=== PATIENT | male | born 1960 | race Caucasian/White ===

== ENCOUNTER → 2017-02-21 | Outpatient (CLI) | payer BC ==
--- NOTE | 2017-02-22 15:31 | CR ---
EXAM DATE: 02/21/17 PATIENT'S AGE: 56 Patient: JOSH BENEDICT Facility: [place], [place] Site . Site : 1960 Study: XRay Spine Cervical [id number]/27/2017 9:35:48 AM Ordering Physician: Carlos Harris Final Report: Indication: Pain. Technique: Three views. Impression: No fracture or malalignment. Mild degenerative disk height loss and osteophyte formation C5-6 and C6-C7. Mild facet arthrosis C6-C7. Prevertebral soft tissues are normal. Dictated by Agusto Escalona MD @ Feb 21 2017 9:37PM (Electronic Signature) Report Signed by Proxy. JESSICA
== END ==
LOC: MW.CHFP 08:50
PROVIDERS: ATTEND Emergency Medicine
DX: M54.2 Cervicalgia (principal); M50.322 Other cervical disc degeneration at C5-C6 level; M47.812 Spondylosis without myelopathy or radiculopathy, cervical region; M25.78 Osteophyte, vertebrae
CPT/HCPCS: 72040; 72040-26

== ENCOUNTER → 2017-03-04 | Outpatient (CLI) | payer BC ==
--- NOTE | 2017-03-05 08:49 | MR ---
EXAMINATION: MRI cervical spine HISTORY: Disc degeneration COMPARISON: Radiographs dated 02/21/2017 TECHNIQUE: Multiplanar and multisequence images obtained of the cervical spine without contrast. FINDINGS: There is straightening of the normal cervical lordosis. The vertebral body heights appear well maintained. There is no abnormal spinal cord signal. No suspicious bone marrow signal changes identified. The visualized intracranial compartments are normal. The prevertebral soft tissues appea r grossly unremarkable. C2-C3: Unremarkable. C3-C4: Tiny diffuse disc bulge without significant spinal canal stenosis. Trace left neural foramina l stenosis. C4-C5: Tiny diffuse disc bulge with minimal spinal canal stenosis. No significant neural foraminal s tenosis. C5-C6: Large diffuse disc bulge with moderate spinal canal stenosis. Moderate right and mild left ne ural foraminal stenosis. C6-C7: Large diffuse disc bulge asymmetric to the right resulting in moderate spinal canal stenosis. There is moderate right and mild left neural foraminal stenosis. C7-T1: Unremarkable. IMPRESSION: 1. Multilevel degenerative disc disease noted within the cervical spine with individual details leanne griffin
== END | disposition home or self-care (01) ==
LOC: MW.MRI 12:00
PROVIDERS: ATTEND Emergency Medicine
DX: M50.30 Other cervical disc degeneration, unspecified cervical region (principal); M50.31 Other cervical disc degeneration, high cervical region
CPT/HCPCS: 72141; 72141-26

== ENCOUNTER 2017-07-16 23:34 | Emergency (ER) | payer BC ==
[2017-07-16] MEDS ORDERED: Hydrocortisone 2.5% Crm 30 GM Tube TOP PRN (23:50)
--- NOTE | 2017-07-16 23:53 | EDM.PDOC ---
ED HPI GENERAL MEDICAL PROBLEM - General Chief Complaint: Skin Complaint Stated Complaint: HEMORRHOIDS Time Seen by Provider: 07/16/17 23:52 - History of Present Illness INITIAL COMMENTS - FREE TEXT/NARRATIVE: HISTORY AND PHYSICAL: History of present illness: Patient is 57-year-old male who presents with a concern of external hemorrhoid he denies other concern Review of systems: As per history of present illness and below otherwise all systems reviewed and negative. Past medical history: As per history of present illness and as reviewed below otherwise noncontributory. Surgical history: As per history of present illness and as reviewed below otherwise noncontributory. Social history: No reported history of drug or alcohol abuse. Family history: As per history of present illness and as reviewed below otherwise noncontributory. Physical exam: HEENT: Atraumatic, normocephalic, pupils reactive, negative for conjunctival pallor or scleral icterus, mucous membranes moist, throat clear, neck supple, nontender, trachea midline. Lungs: Clear to auscultation, breath sounds equal bilaterally, chest nontender. Heart: S1S2, regular, negative for clicks, rubs, or JVD. Abdomen: Soft, nondistended, nontender. Negative for masses or hepatosplenomegaly. Negative for costovertebral tenderness. Pelvis: Stable nontender. Genitourinary: Deferred. Rectal: Inflamed external hemorrhoid without bleeding noted under the palpation no thrombosis at this time Extremities: Atraumatic, negative for cords or calf pain. Neurovascular unremarkable. Neuro: Awake, alert, oriented. Cranial nerves II through XII unremarkable. Cerebellum unremarkable. Motor and sensory unremarkable throughout. Exam nonfocal. Diagnostics: None Therapeutics: Anusol HC cream Impression: #1 external hemorrhoid Definitive disposition and diagnosis as appropriate pending reevaluation and review of above. Rectal Pain Score (Numeric/FACES): 7 - Related Data Allergies Allergy/AdvReac Type Severity Reaction Status Date / Time No Known Allergies Allergy Verified 03/01/14 13:50 Home Meds: Home Meds Aspirin [[place] Aspirin] 81 mg PO DAILY 02/10/15 [History] Social & Family History - Alcohol Use Days Per Week of Alcohol Use: 1 - Recreational Drug Use Recreational Drug Use: No Drug Use in Last 12 Months: No ED ROS GENERAL - Review of Systems Review Of Systems: ROS reveals no pertinent complaints other than HPI. ED EXAM, SKIN/RASH Exam: See Below (See dictation) Course - Vital Signs Last Recorded V/S: Last Vital Signs Temp 37.1 C 07/16/17 23:46 Pulse 74 07/16/17 23:46 Resp 18 07/16/17 23:46 BP 139/81 07/16/17 23:46 Pulse Ox 97 07/16/17 23:46 Departure - Departure Time of Disposition: 23:52 Disposition: Home, Self-Care 01 Condition: Good Clinical Impression: External hemorrhoid - Discharge Information Referrals: PCP,None [Primary Care Provider] - Additional Instructions: The following information is given to patients seen in the emergency department who are being discharged to home. This information is to outline your options for follow-up care. We provide all patients seen in our emergency department with a follow-up referral. The need for follow-up, as well as the timing and circumstances, are variable depending upon the specifics of your emergency department visit. If you don't have a primary care physician on staff, we will provide you with a referral. We always advise you to contact your personal physician following an emergency department visit to inform them of the circumstance of the visit and for follow-up with them and/or the need for any referrals to a consulting specialist. The emergency department will also refer you to a specialist when appropriate. This referral assures that you have the opportunity for followup care with a specialist. All of these measure are taken in an effort to provide you with optimal care, which includes your followup. Under all circumstances we always encourage you to contact your private physician who remains a resource for coordinating your care. When calling for followup care, please make the office aware that this follow-up is from your recent emergency room visit. If for any reason you are refused follow-up, please contact the [facility] emergency department at and asked to speak to the emergency department charge nurse. [facility] Specialty Care - General Surgery Professional Building [address] [place] [address], [address] [place] [address] Anusol HC suppository and cream as directed Colace as prescribed follow-up Gen. surgery call for appointment above return as needed as discussed
[2017-07-17 00:10] VITALS: BP 127/77
[2017-07-17] MEDS ORDERED: Ondansetron 4 MG/2 ML SDV ONE (15:31)
[2017-07-17] MEDS ORDERED: Hydrocortisone 2.5% Crm 30 GM Tube ONE (23:55)
== END 2017-07-17 00:12 | disposition home or self-care (01) ==
LOC: MW.ED 23:34
DX: K64.4 Residual hemorrhoidal skin tags (principal); Z79.82 Long term (current) use of aspirin
CPT/HCPCS: 99282; A9270; J2405

== ENCOUNTER 2017-07-17 08:10 | Day surgery (SDC) | payer BC ==
[2017-07-17] MEDS ORDERED: Sodium Chloride 0.9% 2.5 ML Syringe FLUSH PRN ×2 (08:19→10:56)
[2017-07-17] MEDS ORDERED: Sodium Chloride 0.9% 10 ML Syringe FLUSH PRN ×2 (08:19→10:56)
[2017-07-17] MEDS ORDERED: Ondansetron 4 MG/2 ML SDV IVPUSH ONE (08:25)
--- NOTE | 2017-07-17 08:31 | EDM.PDOC ---
ED HPI GENERAL MEDICAL PROBLEM - General Chief Complaint: Genitourinary Problem Stated Complaint: UNABLE TO URINATE Time Seen by Provider: 07/17/17 08:13 Source of Information: Reports: Patient History Limitations: Reports: No Limitations - History of Present Illness INITIAL COMMENTS - FREE TEXT/NARRATIVE: History of present illness: []Patient states that yesterday he noted a large painful hemorrhoid with minimal bleeding. He has been unable to urinate since 2 this morning is complaining of severe pain. Review of systems: As per history of present illness and below otherwise all systems reviewed and negative. Past medical history: As per history of present illness and as reviewed below otherwise noncontributory. Surgical history: As per history of present illness and as reviewed below otherwise noncontributory. Social history: No reported history of drug or alcohol abuse. Family history: As per history of present illness and as reviewed below otherwise noncontributory. Physical exam: General: Well developed, well nourished in NAD HEENT: Atraumatic, normocephalic, pupils reactive, negative for conjunctival pallor or scleral icterus, mucous membranes moist, throat clear, neck supple, nontender, trachea midline. Lungs: Clear to auscultation, breath sounds equal bilaterally, chest nontender. Heart: S1S2, regular, negative for clicks, rubs, or JVD. Abdomen: Soft, nondistended, nontender. Negative for masses or hepatosplenomegaly. Negative for costovertebral tenderness. Pelvis: Stable nontender. Genitourinary: Deferred. Rectal: There is a 3 cm x 2 cm external hemorrhoid protruding that is mildly erythematous, tender and not thrombosed. There is no active bleeding. Extremities: Atraumatic, negative for cords or calf pain. Neurovascular unremarkable. Neuro: Awake, alert, oriented. Cranial nerves II through XII unremarkable. Cerebellum unremarkable. Motor and sensory unremarkable throughout. Exam nonfocal. Diagnostics: []Labs and UA negative Therapeutics: []Lopez catheter placed with relief of lower abdominal distention and discomfort immediately Impression: []Acute External hemorrhoid, Plan: [] general surgery consulted and will be admitting for removal in the OR today Definitive disposition and diagnosis as appropriate pending reevaluation and review of above. rectum Pain Score (Numeric/FACES): 10 - Related Data Allergies Allergy/AdvReac Type Severity Reaction Status Date / Time No Known Allergies Allergy Verified 07/17/17 08:15 Home Meds: Home Meds Aspirin [[place] Aspirin] 81 mg PO DAILY 02/10/15 [History] Past Medical History - Past Health History Medical/Surgical History: Denies Medical/Surgical History HEENT History: Reports: Impaired Vision Other HEENT History: wears glasses Gastrointestinal History: Reports: Hemorrhoids Dermatologic History: Reports: Other (See Below) Other Dermatologic History: hemorrhoids- surgery in past. - Infectious Disease History Infectious Disease History: Reports: Chicken Pox, Measles - Past Surgical History Musculoskeletal Surgical History: Reports: Other (See Below) Other Musculoskeletal Surgeries/Procedures:: bunion removed from foot Social & Family History - Family History Family Medical History: Noncontributory Cardiac: Reports: Other (See Below) Other Cardiac Family History: heart disease Endocrine/Metabolic: Reports: Diabetes, Type I - Tobacco Use Smoking Status *Q: Never Smoker Second Hand Smoke Exposure: No - Caffeine Use Caffeine Use: Reports: Coffee - Alcohol Use Days Per Week of Alcohol Use: 1 - Recreational Drug Use Recreational Drug Use: No Drug Use in Last 12 Months: No ED ROS GENERAL - Review of Systems Review Of Systems: See Below (See history of present illness) ED EXAM, RENAL/ - Physical Exam Exam: See Below (See history of present illness) Course - Vital Signs Last Recorded V/S: Last Vital Signs Temp 36.1 C 07/17/17 08:10 Pulse 70 07/17/17 08:10 Resp 20 07/17/17 08:10 BP 115/74 07/17/17 08:10 Pulse Ox 94 L 07/17/17 08:10 - Orders/Labs/Meds Orders: Active Orders 24 hr Category Date Time Status Insert Lopez Catheter [Insert Urinary Catheter] [OM.PC] Care 07/17/17 08:30 Ordered Q24H Urinary Catheter Assessment [RC] ASDIRECTED Care 07/17/17 08:19 Active HYDROmorphone [Dilaudid] Med 07/17/17 08:25 Active 0.5 mg IVPUSH Q1H PRN Sodium Chloride 0.9% [Saline Flush] Med 07/17/17 08:19 Active 10 ml FLUSH ASDIRECTED PRN Sodium Chloride 0.9% [Saline Flush] Med 07/17/17 08:19 Active 2.5 ml FLUSH ASDIRECTED PRN Saline Lock Insert [OM.PC] Stat Oth 07/17/17 08:20 Ordered Medication Orders Hydromorphone HCl (Dilaudid) 0.5 mg IVPUSH Q1H PRN PRN Reason: Pain Last Admin: 07/17/17 08:43 Dose: 0.5 mg Sodium Chloride (Saline Flush) 10 ml FLUSH ASDIRECTED PRN PRN Reason: Keep Vein Open Sodium Chloride (Saline Flush) 2.5 ml FLUSH ASDIRECTED PRN PRN Reason: Keep Vein Open Labs: Laboratory Tests 07/17/17 07/17/17 07/17/17 Range/Units 08:43 08:43 08:52 WBC 6.78 (4.0-11.0) K/uL RBC 5.00 (4.50-5.90) M/uL Hgb 15.8 (13.0-17.0) g/dL Hct 43.6 (38.0-50.0) % MCV 87.2 (80.0-98.0) fL MCH 31.6 (27.0-32.0) pg MCHC 36.2 (31.0-37.0) g/dL RDW Std Deviation 41.8 (28.0-62.0) fl RDW Coeff of Shruthi 13 (11.0-15.0) % Plt Count 179 (150-400) K/uL MPV 10.60 (7.40-12.00) fL Neut % (Auto) 44.8 L (48.0-80.0) % Lymph % (Auto) 42.3 H (16.0-40.0) % [place] % (Auto) 11.2 (0.0-15.0) % Eos % (Auto) 1.6 (0.0-7.0) % Baso % (Auto) 0.1 (0.0-1.5) % Neut # (Auto) 3.0 (1.4-5.7) K/uL Lymph # (Auto) 2.9 H (0.6-2.4) K/uL [place] # (Auto) 0.8 (0.0-0.8) K/uL Eos # (Auto) 0.1 (0.0-0.7) K/uL Baso # (Auto) 0.0 (0.0-0.1) K/uL Nucleated RBC % 0.0 /100WBC Nucleated RBCs # 0 K/uL Sodium 137 (136-146) mmol/L Potassium 3.9 (3.5-5.1) mmol/L Chloride 105 (98-110) mmol/L Carbon Dioxide 21 (21-31) mmol/L BUN 17 (6.0-23.0) mg/dL Creatinine 1.3 (0.6-1.5) mg/dL Est Cr Clr Drug Dosing 65.67 mL/min Estimated GFR (MDRD) 57.1 ml/min Glucose 112 H (60-110) mg/dL Calcium 9.4 (8.8-10.8) mg/dL Total Bilirubin 0.6 (0.1-1.5) mg/dL AST 22 (5-40) IU/L ALT 28 (8-54) IU/L Alkaline Phosphatase 60 (40-150) Total Protein 7.5 (6.0-8.0) g/dL Albumin 4.1 (3.5-5.0) g/dL Globulin 3.4 (2.0-3.5) g/dL Albumin/Globulin Ratio 1.2 L (1.3-2.8) Urine Color YELLOW Urine Appearance CLEAR Urine pH 8.0 (5.0-8.0) Ur Specific [place] 1.015 (1.001-1.035) Urine Protein NEGATIVE (NEGATIVE) mg/dL Urine Glucose (UA) NEGATIVE (NEGATIVE) mg/dL Urine Ketones NEGATIVE (NEGATIVE) mg/dL Urine Occult Blood NEGATIVE (NEGATIVE) Urine Nitrite NEGATIVE (NEGATIVE) Urine Bilirubin NEGATIVE (NEGATIVE) Urine Urobilinogen 0.2 (<2.0) EU/dL Ur Leukocyte Esterase NEGATIVE (NEGATIVE) Urine RBC 0-1 (0-2/HPF) Urine WBC 2-3 (0-5/HPF) Ur Epithelial Cells RARE (NONE-FEW) Urine Bacteria FEW (NEGATIVE) Urine Mucus MODERATE (NONE-MOD) Meds: Medications Generic Name Dose Route Start Last Admin Trade Name Freq PRN Reason Stop Dose Admin Hydromorphone HCl 0.5 mg 07/17/17 08:25 07/17/17 08:43 Dilaudid IVPUSH 0.5 mg Q1H PRN Administration Pain Sodium Chloride 10 ml 07/17/17 08:19 Saline Flush FLUSH ASDIRECTED PRN Keep Vein Open Sodium Chloride 2.5 ml 07/17/17 08:19 Saline Flush FLUSH ASDIRECTED PRN Keep Vein Open Discontinued Medications Generic Name Dose Route Start Last Admin Trade Name Camilla PRN Reason Stop Dose Admin Ondansetron HCl 4 mg 07/17/17 08:25 07/17/17 08:43 Zofran IVPUSH 07/17/17 08:26 4 mg ONETIME ONE Administration Departure - Departure Time of Disposition: 09:53 Disposition: Refer to Observation Condition: Good Clinical Impression: External hemorrhoids - Discharge Information Forms: ED Department Discharge - My Orders Last 24 Hours: My Active Orders 07/17/17 08:19 Urinary Catheter Assessment [RC] ASDIRECTED Sodium Chloride 0.9% [Saline Flush] 10 ml FLUSH ASDIRECTED PRN Sodium Chloride 0.9% [Saline Flush] 2.5 ml FLUSH ASDIRECTED PRN 07/17/17 08:20 Saline Lock Insert [OM.PC] Stat 07/17/17 08:25 HYDROmorphone [Dilaudid] 0.5 mg IVPUSH Q1H PRN 07/17/17 08:30 Insert Lopez Catheter [Insert Urinary Catheter] [OM.PC] Q24H - Assessment/Plan Last 24 Hours: My Active Orders 07/17/17 08:19 Urinary Catheter Assessment [RC] ASDIRECTED Sodium Chloride 0.9% [Saline Flush] 10 ml FLUSH ASDIRECTED PRN Sodium Chloride 0.9% [Saline Flush] 2.5 ml FLUSH ASDIRECTED PRN 07/17/17 08:20 Saline Lock Insert [OM.PC] Stat 07/17/17 08:25 HYDROmorphone [Dilaudid] 0.5 mg IVPUSH Q1H PRN 07/17/17 08:30 Insert Lopez Catheter [Insert Urinary Catheter] [OM.PC] Q24H
[2017-07-17] MEDS: HYDROmorphone 1 MG/ML Syringe IVPUSH PRN ×2 (08:43→13:15)
--- NOTE | 2017-07-17 10:11 | PCM.HP ---
H&P History of Present Illness - General Date of Service: 07/17/17 Admit Problem/Dx: Admission Diagnosis/Problem Admission Diagnosis/Problem Hemorrhoidectomy Source of Information: Patient History Limitations: Reports: No Limitations - History of Present Illness Initial Comments - Free Text/Narative: Patient is 57 year old male who presents with a 24 hour history of an externally thrombosed hemorrhoid. He presented to the ED last evening and was given proctofoam and pain medications. He developed urinary retention overnight and presented to the ED this morning. He had a thrombosed hemorrhoid many years back but never had surgery for this. This feels very similar to his previous episode, but he did not have urinary retention with this. He denies fevers, chills, nausea, vomiting, abdominal bloating, and is still passing gas. He had a BM this morning. He had a colonoscopy a couple years ago which he states was normal. He denies any BRBPR before this. rectum Pain Score (Numeric/FACES): 5 - Related Data Allergies/Adverse Reactions: Allergies Allergy/AdvReac Type Severity Reaction Status Date / Time No Known Allergies Allergy Verified 07/17/17 08:15 Home Medications: Home Meds Aspirin [[place] Aspirin] 81 mg PO DAILY 02/10/15 [History] Past Medical History - Past Health History Medical/Surgical History: Denies Medical/Surgical History HEENT History: Reports: Impaired Vision Other HEENT History: wears glasses Gastrointestinal History: Reports: Hemorrhoids Dermatologic History: Reports: Other (See Below) Other Dermatologic History: hemorrhoids- surgery in past. - Infectious Disease History Infectious Disease History: Reports: Chicken Pox, Measles - Past Surgical History Musculoskeletal Surgical History: Reports: Other (See Below) Other Musculoskeletal Surgeries/Procedures:: bunion removed from foot Social & Family History - Family History Family Medical History: Noncontributory Cardiac: Reports: Other (See Below) Other Cardiac Family History: heart disease Endocrine/Metabolic: Reports: Diabetes, Type I - Tobacco Use Smoking Status *Q: Never Smoker Second Hand Smoke Exposure: No - Caffeine Use Caffeine Use: Reports: Coffee - Alcohol Use Days Per Week of Alcohol Use: 1 - Recreational Drug Use Recreational Drug Use: No Drug Use in Last 12 Months: No H&P Review of Systems - Review of Systems: Review Of Systems: ROS reveals no pertinent complaints other than HPI. Exam - Exam Exam: See Below - Vital Signs Vital Signs: Last Vital Signs Temp 36.1 C 07/17/17 08:10 Pulse 59 L 07/17/17 09:54 Resp 16 07/17/17 09:54 BP 135/79 07/17/17 09:54 Pulse Ox 95 07/17/17 09:54 Weight: 94 kg - Exam General: Alert, Oriented, Cooperative HEENT: Conjunctiva Clear, EACs Clear, Hearing Intact, Mucosa Moist & Daniels, Nares Patent, Posterior Pharynx Clear, Pupils Equal, Pupils Reactive Neck: Supple Lungs: Clear to Auscultation, Normal Respiratory Effort Cardiovascular: Regular Rate, Regular Rhythm GI/Abdominal Exam: Normal Bowel Sounds, Soft, Non-Tender, No Organomegaly, No Distention Rectal (Males) Exam: Normal Rectal Tone, Hemorrhoids (externally thrombosed hemorrhoid on the right lateral side), Tenderness - Patient Data Lab Results Last 24 hrs: Laboratory Results - last 24 hr 07/17/17 07/17/17 07/17/17 Range/Units 08:43 08:43 08:52 WBC 6.78 (4.0-11.0) K/uL RBC 5.00 (4.50-5.90) M/uL Hgb 15.8 (13.0-17.0) g/dL Hct 43.6 (38.0-50.0) % MCV 87.2 (80.0-98.0) fL MCH 31.6 (27.0-32.0) pg MCHC 36.2 (31.0-37.0) g/dL RDW Std Deviation 41.8 (28.0-62.0) fl RDW Coeff of Shruthi 13 (11.0-15.0) % Plt Count 179 (150-400) K/uL MPV 10.60 (7.40-12.00) fL Neut % (Auto) 44.8 L (48.0-80.0) % Lymph % (Auto) 42.3 H (16.0-40.0) % [place] % (Auto) 11.2 (0.0-15.0) % Eos % (Auto) 1.6 (0.0-7.0) % Baso % (Auto) 0.1 (0.0-1.5) % Neut # (Auto) 3.0 (1.4-5.7) K/uL Lymph # (Auto) 2.9 H (0.6-2.4) K/uL [place] # (Auto) 0.8 (0.0-0.8) K/uL Eos # (Auto) 0.1 (0.0-0.7) K/uL Baso # (Auto) 0.0 (0.0-0.1) K/uL Nucleated RBC % 0.0 /100WBC Nucleated RBCs # 0 K/uL Sodium 137 (136-146) mmol/L Potassium 3.9 (3.5-5.1) mmol/L Chloride 105 (98-110) mmol/L Carbon Dioxide 21 (21-31) mmol/L BUN 17 (6.0-23.0) mg/dL Creatinine 1.3 (0.6-1.5) mg/dL Est Cr Clr Drug Dosing 65.67 mL/min Estimated GFR (MDRD) 57.1 ml/min Glucose 112 H (60-110) mg/dL Calcium 9.4 (8.8-10.8) mg/dL Total Bilirubin 0.6 (0.1-1.5) mg/dL AST 22 (5-40) IU/L ALT 28 (8-54) IU/L Alkaline Phosphatase 60 (40-150) Total Protein 7.5 (6.0-8.0) g/dL Albumin 4.1 (3.5-5.0) g/dL Globulin 3.4 (2.0-3.5) g/dL Albumin/Globulin Ratio 1.2 L (1.3-2.8) Urine Color YELLOW Urine Appearance CLEAR Urine pH 8.0 (5.0-8.0) Ur Specific [place] 1.015 (1.001-1.035) Urine Protein NEGATIVE (NEGATIVE) mg/dL Urine Glucose (UA) NEGATIVE (NEGATIVE) mg/dL Urine Ketones NEGATIVE (NEGATIVE) mg/dL Urine Occult Blood NEGATIVE (NEGATIVE) Urine Nitrite NEGATIVE (NEGATIVE) Urine Bilirubin NEGATIVE (NEGATIVE) Urine Urobilinogen 0.2 (<2.0) EU/dL Ur Leukocyte Esterase NEGATIVE (NEGATIVE) Urine RBC 0-1 (0-2/HPF) Urine WBC 2-3 (0-5/HPF) Ur Epithelial Cells RARE (NONE-FEW) Urine Bacteria FEW (NEGATIVE) Urine Mucus MODERATE (NONE-MOD) Result Diagrams: 07/17/17 08:43 07/17/17 08:43 *Q Meaningful Use (ADM) - VTE *Q VTE Criteria *Q: - Stroke *Q Stroke Criteria *Q: - AMI *Q AMI Criteria *Q: - Problem List (1) External hemorrhoid SNOMED Code(s): 08438954 ICD Code: K64.4 - RESIDUAL HEMORRHOIDAL SKIN TAGS Status: Acute Current Visit: Yes (2) Acute urinary retention SNOMED Code(s): 691233150 ICD Code: R33.8 - OTHER RETENTION OF URINE Status: Acute Current Visit: Yes Problem List Initiated/Reviewed/Updated: Yes Orders Last 24hrs: Active Orders 24 hr Category Date Time Status Admission Status [Patient Status] [ADT] Stat ADT 07/17/17 09:53 Active Insert Marie Catheter [Insert Urinary Catheter] [OM.PC] Care 07/17/17 08:30 Ordered Q24H Urinary Catheter Assessment [RC] ASDIRECTED Care 07/17/17 08:19 Active HYDROmorphone [Dilaudid] Med 07/17/17 08:25 Active 0.5 mg IVPUSH Q1H PRN Sodium Chloride 0.9% [Saline Flush] Med 07/17/17 08:19 Active 10 ml FLUSH ASDIRECTED PRN Sodium Chloride 0.9% [Saline Flush] Med 07/17/17 08:19 Active 2.5 ml FLUSH ASDIRECTED PRN Saline Lock Insert [OM.PC] Stat Oth 07/17/17 08:20 Ordered Medication Orders Hydromorphone HCl (Dilaudid) 0.5 mg IVPUSH Q1H PRN PRN Reason: Pain Last Admin: 07/17/17 08:43 Dose: 0.5 mg Sodium Chloride (Saline Flush) 10 ml FLUSH ASDIRECTED PRN PRN Reason: Keep Vein Open Sodium Chloride (Saline Flush) 2.5 ml FLUSH ASDIRECTED PRN PRN Reason: Keep Vein Open Assessment/Plan Comment:: Patient has an acutely thrombosed external hemorrhoid. Given his presentation is <72 hours, he would benefit from a surgical excision of the hemorrhoid. The patient and I discussed the hemorrhoidectomy procedure and expected post- operative course. We talked about the need to take pain medication, local analgesics, fiber and lidocaine creams afterwards. We discussed the risks including bleeding, infection, damage to surrounding structures including the anal sphincter resulting in loss of continence and anal stricturing. The patient verbalized understanding and wishes to proceed. Will admit to the floor , keep NPO, start IV fluids and write for IV pain meds. Will keep the marie for now and start flomax postoperatively. We will decide whether to keep the marie or attempt a trial void in the morning.
[2017-07-17] MEDS ORDERED: cefOXitin 2 GM in Premix Bag 1 BAG IV ONE (10:56)
[2017-07-17] MEDS ORDERED: Lactated Ringers 1,000 ML IV SCH (11:00)
--- NOTE | 2017-07-17 14:45 | PCM.PREANE ---
Preanesthetic Assessment - Anesthesia/Transfusion/Family Hx Anesthesia History: Prior Anesthesia Without Reaction Family History of Anesthesia Reaction: No - Review of Systems General: No Symptoms Pulmonary: No Symptoms Cardiovascular: No Symptoms Neurological: No Symptoms Other: Reports: None - Physical Assessment NPO Status Date: 07/16/17 O2 Sat by Pulse Oximetry: 95 Respiratory Rate: 18 Vital Signs: Last Vital Signs Temp 36.4 C 07/17/17 12:00 Pulse 54 L 07/17/17 12:00 Resp 18 07/17/17 12:00 BP 100/54 L 07/17/17 12:00 Pulse Ox 95 07/17/17 12:00 Height: 1.78 m Weight: 94 kg ASA Class: 2 Mental Status: Alert & Oriented x3 Dentition: Reports: [place](s) (maxillary incisors) ROM/Head Extension: Full Lungs: Clear to Auscultation, Normal Respiratory Effort Cardiovascular: Regular Rate, Regular Rhythm - Lab Values: Laboratory Last Values WBC 6.78 K/uL (4.0-11.0) 07/17/17 08:43 RBC 5.00 M/uL (4.50-5.90) 07/17/17 08:43 Hgb 15.8 g/dL (13.0-17.0) 07/17/17 08:43 Hct 43.6 % (38.0-50.0) 07/17/17 08:43 MCV 87.2 fL (80.0-98.0) 07/17/17 08:43 MCH 31.6 pg (27.0-32.0) 07/17/17 08:43 MCHC 36.2 g/dL (31.0-37.0) 07/17/17 08:43 RDW Std Deviation 41.8 fl (28.0-62.0) 07/17/17 08:43 RDW Coeff of Shruthi 13 % (11.0-15.0) 07/17/17 08:43 Plt Count 179 K/uL (150-400) 07/17/17 08:43 MPV 10.60 fL (7.40-12.00) 07/17/17 08:43 Neut % (Auto) 44.8 % (48.0-80.0) L 07/17/17 08:43 Lymph % (Auto) 42.3 % (16.0-40.0) H 07/17/17 08:43 [place] % (Auto) 11.2 % (0.0-15.0) 07/17/17 08:43 Eos % (Auto) 1.6 % (0.0-7.0) 07/17/17 08:43 Baso % (Auto) 0.1 % (0.0-1.5) 07/17/17 08:43 Neut # (Auto) 3.0 K/uL (1.4-5.7) 07/17/17 08:43 Lymph # (Auto) 2.9 K/uL (0.6-2.4) H 07/17/17 08:43 [place] # (Auto) 0.8 K/uL (0.0-0.8) 07/17/17 08:43 Eos # (Auto) 0.1 K/uL (0.0-0.7) 07/17/17 08:43 Baso # (Auto) 0.0 K/uL (0.0-0.1) 07/17/17 08:43 Nucleated RBC % 0.0 /100WBC 07/17/17 08:43 Nucleated RBCs # 0 K/uL 07/17/17 08:43 Sodium 137 mmol/L (136-146) 07/17/17 08:43 Potassium 3.9 mmol/L (3.5-5.1) 07/17/17 08:43 Chloride 105 mmol/L (98-110) 07/17/17 08:43 Carbon Dioxide 21 mmol/L (21-31) 07/17/17 08:43 BUN 17 mg/dL (6.0-23.0) 07/17/17 08:43 Creatinine 1.3 mg/dL (0.6-1.5) 07/17/17 08:43 Est Cr Clr Drug Dosing 65.67 mL/min 07/17/17 08:43 Estimated GFR (MDRD) 57.1 ml/min 07/17/17 08:43 Glucose 112 mg/dL (60-110) H 07/17/17 08:43 Calcium 9.4 mg/dL (8.8-10.8) 07/17/17 08:43 Total Bilirubin 0.6 mg/dL (0.1-1.5) 07/17/17 08:43 AST 22 IU/L (5-40) 07/17/17 08:43 ALT 28 IU/L (8-54) 07/17/17 08:43 Alkaline Phosphatase 60 (40-150) 07/17/17 08:43 Total Protein 7.5 g/dL (6.0-8.0) 07/17/17 08:43 Albumin 4.1 g/dL (3.5-5.0) 07/17/17 08:43 Globulin 3.4 g/dL (2.0-3.5) 07/17/17 08:43 Albumin/Globulin Ratio 1.2 (1.3-2.8) L 07/17/17 08:43 Urine Color YELLOW 07/17/17 08:52 Urine Appearance CLEAR 07/17/17 08:52 Urine pH 8.0 (5.0-8.0) 07/17/17 08:52 Ur Specific [place] 1.015 (1.001-1.035) 07/17/17 08:52 Urine Protein NEGATIVE mg/dL (NEGATIVE) 07/17/17 08:52 Urine Glucose (UA) NEGATIVE mg/dL (NEGATIVE) 07/17/17 08:52 Urine Ketones NEGATIVE mg/dL (NEGATIVE) 07/17/17 08:52 Urine Occult Blood NEGATIVE (NEGATIVE) 07/17/17 08:52 Urine Nitrite NEGATIVE (NEGATIVE) 07/17/17 08:52 Urine Bilirubin NEGATIVE (NEGATIVE) 07/17/17 08:52 Urine Urobilinogen 0.2 EU/dL (<2.0) 07/17/17 08:52 Ur Leukocyte Esterase NEGATIVE (NEGATIVE) 07/17/17 08:52 Urine RBC 0-1 (0-2/HPF) 07/17/17 08:52 Urine WBC 2-3 (0-5/HPF) 07/17/17 08:52 Ur Epithelial Cells RARE (NONE-FEW) 07/17/17 08:52 Urine Bacteria FEW (NEGATIVE) 07/17/17 08:52 Urine Mucus MODERATE (NONE-MOD) 07/17/17 08:52 - Allergies Allergies/Adverse Reactions: Allergies Allergy/AdvReac Type Severity Reaction Status Date / Time No Known Allergies Allergy Verified 07/17/17 08:15 - Anesthesia Plan Pre-Op Medication Ordered: None - Acknowledgements Anesthesia Type Planned: General Anesthesia Pt an Appropriate Candidate for the Planned Anesthesia: Yes Alternatives and Risks of Anesthesia Discussed w Pt/Guardian: Yes Pt/Guardian Understands and Agrees with Anesthesia Plan: Yes PreAnesthesia Questionnaire - Past Health History Medical/Surgical History: Denies Medical/Surgical History HEENT History: Reports: Impaired Vision Other HEENT History: wears glasses Gastrointestinal History: Reports: Hemorrhoids Genitourinary History: Reports: Other (See Below) Other Genitourinary History: Came to ED with problem of being unable to void so catheter inserted. Musculoskeletal History: Reports: Arthritis, Neck Pain, Chronic Dermatologic History: Reports: Other (See Below) Other Dermatologic History: hemorrhoids- surgery in past. - Infectious Disease History Infectious Disease History: Reports: Chicken Pox, Measles - Past Surgical History GI Surgical History: Reports: None Male Surgical History: Reports: Circumcision Musculoskeletal Surgical History: Reports: Other (See Below) Other Musculoskeletal Surgeries/Procedures:: bunion removed from foot - SUBSTANCE USE Smoking Status *Q: Never Smoker Second Hand Smoke Exposure: No Days Per Week of Alcohol Use: 1 Recreational Drug Use History: No - HOME MEDS Home Medications: Home Meds Aspirin [[place] Aspirin] 81 mg PO DAILY 02/10/15 [History] - CURRENT (IN HOUSE) MEDS Current Meds: Current Medications Hydromorphone HCl (Dilaudid) 0.5 mg IVPUSH Q1H PRN PRN Reason: Pain Last Admin: 07/17/17 13:15 Dose: 0.5 mg Lactated Ringer's (Ringers, Lactated) 1,000 mls @ 100 mls/hr IV ASDIRECTED ASIA Last Admin: 07/17/17 11:27 Dose: 100 mls/hr Sodium Chloride (Saline Flush) 10 ml FLUSH ASDIRECTED PRN PRN Reason: Keep Vein Open Sodium Chloride (Saline Flush) 2.5 ml FLUSH ASDIRECTED PRN PRN Reason: Keep Vein Open Sodium Chloride (Saline Flush) 10 ml FLUSH ASDIRECTED PRN PRN Reason: Keep Vein Open Sodium Chloride (Saline Flush) 2.5 ml FLUSH ASDIRECTED PRN PRN Reason: Keep Vein Open Discontinued Medications Cefoxitin Sodium 2 gm/ Premix 50 mls @ 100 mls/hr IV ONETIME ONE Stop: 07/17/17 11:25 Last Admin: 07/17/17 11:29 Dose: 100 mls/hr Ondansetron HCl (Zofran) 4 mg IVPUSH ONETIME ONE Stop: 07/17/17 08:26 Last Admin: 07/17/17 08:43 Dose: 4 mg
[2017-07-17] MEDS ORDERED: Gelatin Sponge,Absorbable 12-7 mm Sponge TOP ONE (15:28)
[2017-07-17] MEDS ORDERED: Bupivacaine 0.5% 10 ML SDV ONE (15:29)
[2017-07-17] MEDS ORDERED: Ondansetron 4 MG/2 ML SDV ONE (15:34)
[2017-07-17] MEDS ORDERED: Succinylcholine/Normal Saline 200 MG/10 ML Syringe ONE (15:35)
[2017-07-17] MEDS ORDERED: Midazolam 1 MG/ML 2 ML SDV ONE (15:35)
[2017-07-17] MEDS ORDERED: Propofol 200 MG/20 ML SDV ONE (15:35)
[2017-07-17] MEDS ORDERED: fentaNYL 100 MCG/2 ML SDV ONE ×2 (15:35→15:36)
[2017-07-17] MEDS ORDERED: Ketorolac 30 MG/ML SDV ONE (15:37)
[2017-07-17] MEDS ORDERED: Dexamethasone 4 MG/ML 5 ML MDV ONE (15:38)
[2017-07-17] MEDS ORDERED: Morphine 10 MG/ML Syringe ONE (16:16)
[2017-07-17] MEDS ORDERED: Acetaminophen/oxyCODONE 325-5 MG Tab PO PRN (17:01)
[2017-07-17] MEDS ORDERED: Lidocaine 2% Jelly 30 ML Tube MUCMEM PRN (17:02)
--- NOTE | 2017-07-17 17:12 | PCM.OPNOTE ---
- General Post-Op/Procedure Note Date of Surgery/Procedure: 07/17/17 Operative Procedure(s): Hemorrhoidectomy Findings: right lateral grade 4 internal hemorrhoid that was prolapsed and thrombosed Pre Op Diagnosis: internal hemorrhoid Post-Op Diagnosis: internal hemorrhoid thrombosed Anesthesia Technique: General ET Tube Primary Surgeon: Sarah Patterson Fluid Replacement, Intraop: 750 Output, Urine Amount: 50 EBL in mLs: 30 Condition: Fair Free Text/Narrative:: Intake & Output 07/17/17 07/17/17 07/17/17 06:59 14:59 22:59 Intake Total 0 Output Total 550 Balance -550
--- NOTE | 2017-07-17 17:39 | PCM.POSTAN ---
POST ANESTHESIA ASSESSMENT - MENTAL STATUS Mental Status: Alert, Oriented - VITAL SIGNS Pulse Rate: 92 SaO2: 94 Resp Rate: 15 Blood Pressure: 103/60 - PAIN Pain Score: 0 - OBSERVATIONS Free Text/Narrative:: Doing well, stable no pain at present. Ready for dicharge.
[2017-07-17] MEDS: Tamsulosin 0.4 MG Cap.ER PO SCH ×2 (18:15→18:20)
--- NOTE | 2017-07-17 23:24 | OR ---
SURGEON: POOL PETERSON MD DATE OF PROCEDURE: 07/17/2017 PREOPERATIVE DIAGNOSIS: Thrombosed external hemorrhoid. POSTOPERATIVE DIAGNOSIS: Prolapsed and thrombosed grade 4 internal hemorrhoid. PROCEDURE PERFORMED: Hemorrhoidectomy. ANESTHESIA: General endotracheal anesthesia. FLUIDS: 750 mL of crystalloid. ESTIMATED BLOOD LOSS: 30 mL. FINDINGS: Prolapsed right lateral grade 4 hemorrhoid with subsequent thrombosis. COMPLICATIONS: None. INDICATIONS: The patient is a 57-year-old male, who presents with a painful mass protruding from the right side of his anus. This appeared yesterday. He presented to the emergency room last evening and was given pain medicines and cortisone cream for comfort. Overnight the patient had no urine output and presented to the emergency room this morning with urinary retention. Lopez catheter was placed and I was consulted. Upon exam the patient had a large painful mass protruding from his anus that appeared to be an externally thrombosed hemorrhoid. Given the acute presentation, the decision was made to perform a hemorrhoidectomy. The patient and I discussed this procedure including the expected perioperative course. We discussed the risks, including bleeding, infection, or damage to surrounding structures, including sphincter muscle resulting in loss of continence. I also explained to the patient that he may continue to have urinary retention after this procedure. The patient verbalized understanding of the procedure and its risks and wishes to proceed. PROCEDURE IN DETAIL: The patient was brought into the OR and a time-out was completed. After the time-out was completed, general endotracheal anesthesia was induced on the OR cart. Once the patient was intubated, he was then placed in a prone position on the operating room table with special care taken to pad and protect all bony structures. The anus and buttocks were then prepped and draped in usual standard fashion. I began the case by examining the anoderm. The patient had a 3 to 4 mm dark purple mass protruding from the anus. On digital rectal exam, this prolapsed up into the anal canal. A well lubricated bivalve speculum was then inserted into the anus and opened to allow better visualization of the hemorrhoidal tissue. The patient had a right lateral thrombosed internal hemorrhoid. This was grasped with an Allis and the hemorrhoidal tissue elevated. Needlepoint cautery was then used to create a ravin shaped elliptical incision in the skin around the hemorrhoid. Cautery was then used to undermine this tissue and excise it. The hemorrhoidal tissue was sent to pathology. A large clot was encountered at the base of this hemorrhoid and suctioned out. Cautery was used to obtain a reasonable hemostasis before attempting primary closure. It was somewhat difficult to obtain hemostasis and this patient as he has been on aspirin therapy prior to this. 2-0 chromic suture was then used to close the wound created by excising the hemorrhoidal tissue. A running locking stitch was placed from the proximal anal tissue distally towards the anoderm. This was then stitched back upon itself to the proximal edge using a simple baseball stitch. This running locking then overlying baseball stitch provided adequate hemostasis of the wound. The wound was then irrigated and I reinspected my edges. There was a small cuff of tissue proximally that had not been included in my suture line. I closed this with a simple interrupted stitches and a running locking stitch. These brought the tissue together adequately and hemostasis was achieved. Gelfoam was then placed against the wound and allowed that to sit for 5 minutes before reinspecting my wound edges. Adequate hemostasis was achieved, so the Gel-Foam was left in place. The area around the anoderm was circumferentially anesthetized with 0.5% Marcaine plain. A bilateral perineal block was performed with 5 mL of 0.5% Marcaine plain on each side. The patient tolerated the procedure well. He was extubated and taken to the PACU in stable condition. RICARDO LIZAMA /[id number] JESSICA
--- NOTE | 2017-07-18 00:41 | PCM48HPAN ---
Post Anesthesia Note - EVALUATION WITHIN 48HRS OF ANESTHETIC Vital Signs in Normal Range: Yes Patient Participated in Evaluation: Yes Respiratory Function Stable: Yes Airway Patent: Yes Cardiovascular Function Stable: Yes Hydration Status Stable: Yes Pain Control Satisfactory: Yes Nausea and Vomiting Control Satisfactory: Yes Mental Status Recovered: Yes
[2017-07-18] MEDS: Tamsulosin 0.4 MG Cap.ER PO SCH (08:42)
[2017-07-18] MEDS ORDERED: Calcium Polycarbophil 625 MG Tab PO SCH (09:00)
[2017-07-18] MEDS ORDERED: Polyethylene Glycol 3350 Powder 17 GM Packet PO SCH (09:00)
[2017-07-18 12:34] VITALS: BP 118/60
--- NOTE | 2017-07-18 13:04 | PCM.SURGPN ---
- General Info Date of Service: 07/18/17 POD#: 1 Post-Op Diagnosis: Thrombosed internal hemorrhoid Functional Status: Reports: Tolerating Diet - Review of Systems General: Reports: No Symptoms Gastrointestinal: Reports: No Symptoms Genitourinary: Reports: No Symptoms Systems Review Comment:: Patient denies pain, nausea, vomiting, or bladder spasms. - Patient Data Vitals - Most Recent: Last Vital Signs Temp 37.1 C 07/18/17 12:00 Pulse 64 07/18/17 12:00 Resp 16 07/18/17 12:00 BP 118/60 07/18/17 12:00 Pulse Ox 94 L 07/18/17 12:00 Weight - Most Recent: 94 kg I&O - Last 24 Hours: Intake & Output 07/17/17 07/18/17 07/18/17 22:59 06:59 14:59 Intake Total 2500 400 Output Total 650 350 Balance 1850 50 Med Orders - Current: Current Medications Calcium Polycarbophil (Fibercon) 1,250 mg PO DAILY [facility] Last Admin: 07/18/17 08:42 Dose: 1,250 mg Hydromorphone HCl (Dilaudid) 0.5 mg IVPUSH Q1H PRN PRN Reason: Pain Last Admin: 07/17/17 13:15 Dose: 0.5 mg Lidocaine HCl (Xylocaine 2% Jelly) 2 ml MUCMEM Q6HR PRN PRN Reason: Pain Oxycodone/Acetaminophen (Percocet 325-5 Mg) 2 tab PO Q4H PRN PRN Reason: Pain Last Admin: 07/18/17 09:27 Dose: 2 tab Polyethylene Glycol (Miralax) 17 gm PO DAILY [facility] Last Admin: 07/18/17 08:42 Dose: 17 gm Sodium Chloride (Saline Flush) 10 ml FLUSH ASDIRECTED PRN PRN Reason: Keep Vein Open Sodium Chloride (Saline Flush) 2.5 ml FLUSH ASDIRECTED PRN PRN Reason: Keep Vein Open Sodium Chloride (Saline Flush) 10 ml FLUSH ASDIRECTED PRN PRN Reason: Keep Vein Open Sodium Chloride (Saline Flush) 2.5 ml FLUSH ASDIRECTED PRN PRN Reason: Keep Vein Open Tamsulosin HCl (Flomax) 0.4 mg PO BIDPC [facility] Last Admin: 07/18/17 08:42 Dose: 0.4 mg Discontinued Medications Bupivacaine HCl (Sensorcaine-Mpf 0.5%) Confirm Administered Dose 20 ml .ROUTE .STK-MED ONE Stop: 07/17/17 15:30 Dexamethasone (Dexamethasone) Confirm Administered Dose 20 mg .ROUTE .STK-MED ONE Stop: 07/17/17 15:39 Fentanyl (Sublimaze) Confirm Administered Dose 100 mcg .ROUTE .STK-MED ONE Stop: 07/17/17 15:36 Fentanyl (Sublimaze) Confirm Administered Dose 100 mcg .ROUTE .STK-MED ONE Stop: 07/17/17 15:37 Gelatin (Gelfoam 12-7 Mm) Confirm Administered Dose 1 each TOP .STK-MED ONE Stop: 07/17/17 15:29 Gelatin (Gelfoam Size 100) Confirm Administered Dose 1 each TOP .STK-MED ONE Stop: 07/17/17 15:31 Glycopyrrolate () Confirm Administered Dose 1 mg .ROUTE .STK-MED ONE Stop: 07/17/17 15:36 Cefoxitin Sodium 2 gm/ Premix 50 mls @ 100 mls/hr IV ONETIME ONE Stop: 07/17/17 11:25 Last Admin: 07/17/17 11:29 Dose: 100 mls/hr Lactated Ringer's (Ringers, Lactated) 1,000 mls @ 100 mls/hr IV ASDIRECTED ASIA Last Infusion: 07/17/17 20:49 Dose: 100 mls/hr Ketorolac Tromethamine (Toradol) Confirm Administered Dose 30 mg .ROUTE .STK- MED ONE Stop: 07/17/17 15:38 Midazolam HCl (Versed 1 Mg/Ml) Confirm Administered Dose 2 mg .ROUTE .STK-MED ONE Stop: 07/17/17 15:36 Morphine Sulfate (Morphine) Confirm Administered Dose 10 mg .ROUTE .STK-MED ONE Stop: 07/17/17 16:17 Ondansetron HCl (Zofran) 4 mg IVPUSH ONETIME ONE Stop: 07/17/17 08:26 Last Admin: 07/17/17 08:43 Dose: 4 mg Ondansetron HCl (Zofran) Confirm Administered Dose 4 mg .ROUTE .STK-MED ONE Stop: 07/17/17 15:35 Propofol (Diprivan 20 Ml) Confirm Administered Dose 400 mg .ROUTE .STK-MED ONE Stop: 07/17/17 15:36 Succinylcholine Chloride (Succinylcholine In Ns Pf) Confirm Administered Dose 200 mg .ROUTE .STK-MED ONE Stop: 07/17/17 15:36 Vecuronium [place] (Vecuronium) Confirm Administered Dose 10 mg .ROUTE .STK-MED ONE Stop: 07/17/17 16:13 - Exam General: Alert, Oriented Lungs: Normal Respiratory Effort Cardiovascular: Regular Rhythm GI/Abdominal Exam: Soft, Non-Tender, No Distention - Problem List & Annotations (1) External hemorrhoid SNOMED Code(s): 90767574 Code(s): K64.4 - RESIDUAL HEMORRHOIDAL SKIN TAGS Status: Acute Current Visit: Yes (2) Acute urinary retention SNOMED Code(s): 428481114 Code(s): R33.8 - OTHER RETENTION OF URINE Status: Acute Current Visit: Yes (3) Thrombosed hemorrhoids SNOMED Code(s): 92542538 Code(s): K64.5 - PERIANAL VENOUS THROMBOSIS Status: Acute Current Visit: Yes - Problem List Review Problem List Initiated/Reviewed/Updated: Yes - My Orders Last 24 Hours: Active Orders 24 hr Category Date Time Status Ready for Discharge [RC] PER UNIT ROUTINE Care 07/18/17 12:33 Active Remove Lopez Catheter [Urinary Catheter Removal] [RC] Care 07/18/17 08:10 Active Per Unit Routine Regular Diet [DIET] Diet 07/18/17 Breakfast Active Acetaminophen/oxyCODONE [Percocet 325-5 MG] Med 07/17/17 17:01 Active 2 tab PO Q4H PRN Calcium Polycarbophil [Fibercon] Med 07/18/17 09:00 Active 1,250 mg PO DAILY FLU Vacc [id number](6MOS UP)/PF [Flulaval Quad [id number] Med 07/24/17 11:52 Once ] 60 mcg IM ONETIME ONE Lidocaine 2% [Xylocaine 2% Jelly] Med 07/17/17 17:02 Active 2 ml MUCMEM Q6HR PRN Polyethylene Glycol 3350 [MiraLAX] Med 07/18/17 09:00 Active 17 gm PO DAILY Tamsulosin [Flomax] Med 07/17/17 17:15 Active 0.4 mg PO BIDPC Medication Orders Calcium Polycarbophil (Fibercon) 1,250 mg PO DAILY [facility] Last Admin: 07/18/17 08:42 Dose: 1,250 mg Hydromorphone HCl (Dilaudid) 0.5 mg IVPUSH Q1H PRN PRN Reason: Pain Last Admin: 07/17/17 13:15 Dose: 0.5 mg Admin: 07/17/17 08:43 Dose: 0.5 mg Lidocaine HCl (Xylocaine 2% Jelly) 2 ml MUCMEM Q6HR PRN PRN Reason: Pain Oxycodone/Acetaminophen (Percocet 325-5 Mg) 2 tab PO Q4H PRN PRN Reason: Pain Last Admin: 07/18/17 09:27 Dose: 2 tab Polyethylene Glycol (Miralax) 17 gm PO DAILY [facility] Last Admin: 07/18/17 08:42 Dose: 17 gm Sodium Chloride (Saline Flush) 10 ml FLUSH ASDIRECTED PRN PRN Reason: Keep Vein Open Sodium Chloride (Saline Flush) 2.5 ml FLUSH ASDIRECTED PRN PRN Reason: Keep Vein Open Sodium Chloride (Saline Flush) 10 ml FLUSH ASDIRECTED PRN PRN Reason: Keep Vein Open Sodium Chloride (Saline Flush) 2.5 ml FLUSH ASDIRECTED PRN PRN Reason: Keep Vein Open Tamsulosin HCl (Flomax) 0.4 mg PO BIDPC [facility] Last Admin: 07/18/17 08:42 Dose: 0.4 mg Admin: 07/17/17 18:20 Dose: Not Given Admin: 07/17/17 18:15 Dose: 0.4 mg - Plan Plan (Free Text/Narrative):: -Lopez removed this morning and patient voided afterwards. -Pain well controlled, tolerating a diet, and vitals stable. Patient ok to go home. -D/C instructions: BID sitz baths, Miralax and fiber supplements daily, percocet and lidocaine cream prn pain. F/u in clinic in 2 weeks
[2017-07-24] MEDS ORDERED: FLU Vacc QS 2017-18 (6mos UP)/PF 60 MCG/0.5 ML Syringe IM ONE (11:52)
== END 2017-07-18 13:10 | disposition home or self-care (01) ==
LOC: MW.ED 08:10 → MW.SDS 10:03 → MW.MS 11:19 → MW.SDS 07-18 13:10
PROVIDERS: ATTEND Surgery
DX: K64.3 Fourth degree hemorrhoids (principal); Z79.82 Long term (current) use of aspirin; Z79.899 Other long term (current) drug therapy; Z98.890 Other specified postprocedural states
CPT/HCPCS: 36415; 46255; 80053; 81001; 85025; 96374; 96375; 99285; A9270; J1100; J1170; J1885; J2250; J2270; J2405; J3010; J7120; 00902; 88304; 99282; J2704

== ENCOUNTER 2017-07-25 06:17 | Day surgery (SDC) | payer BC ==
[~2017-07-25 06:17] MED LIST: Lactated Ringers 1,000 ML IV SCH; Sodium Chloride 0.9% 10 ML Syringe FLUSH PRN; Sodium Chloride 0.9% 2.5 ML Syringe FLUSH PRN; cefOXitin 2 GM in Premix Bag 1 BAG IV ONE
--- NOTE | 2017-07-25 07:02 | PCM.PREANE ---
Preanesthetic Assessment - Anesthesia/Transfusion/Family Hx Anesthesia History: Prior Anesthesia Without Reaction Family History of Anesthesia Reaction: No Transfusion History: No Prior Transfusion(s) Intubation History: Unknown - Review of Systems General: No Symptoms Pulmonary: No Symptoms Cardiovascular: No Symptoms Gastrointestinal: Other (hemorrhoids) Neurological: No Symptoms Other: Reports: None - Physical Assessment O2 Sat by Pulse Oximetry: 97 Respiratory Rate: 16 Vital Signs: Last Vital Signs Temp 36 C 07/25/17 06:35 Pulse 67 07/25/17 06:35 Resp 16 07/25/17 06:35 BP 129/74 07/25/17 06:35 Pulse Ox 97 07/25/17 06:35 Height: 1.78 m Weight: 94 kg ASA Class: 1 Mental Status: Alert & Oriented x3 Airway Class: Mallampati = 2 Dentition: Reports: [place](s) (upper front, retainer at the bottom) Thyro-Mental Finger Breadths: 3 Mouth Opening Finger Breadths: 3 ROM/Head Extension: Full Lungs: Clear to Auscultation, Normal Respiratory Effort Cardiovascular: Regular Rate, Regular Rhythm - Allergies Allergies/Adverse Reactions: Allergies Allergy/AdvReac Type Severity Reaction Status Date / Time No Known Allergies Allergy Verified 07/17/17 08:15 - Blood Blood Available: No - Anesthesia Plan Pre-Op Medication Ordered: None - Acknowledgements Anesthesia Type Planned: General Anesthesia Pt an Appropriate Candidate for the Planned Anesthesia: Yes Alternatives and Risks of Anesthesia Discussed w Pt/Guardian: Yes Pt/Guardian Understands and Agrees with Anesthesia Plan: Yes PreAnesthesia Questionnaire - Past Health History Medical/Surgical History: Denies Medical/Surgical History HEENT History: Reports: Impaired Vision Other HEENT History: wears glasses Gastrointestinal History: Reports: Hemorrhoids Other Gastrointestinal History: hemorrhoid surgery in the past Genitourinary History: Reports: None Musculoskeletal History: Reports: Arthritis, Neck Pain, Chronic Dermatologic History: Reports: None - Infectious Disease History Infectious Disease History: Reports: Chicken Pox, Measles - Past Surgical History Head Surgeries/Procedures: Reports: None GI Surgical History: Reports: Other (See Below) Other GI Surgeries/Procedures: rt lateral hemorrhoidectomy for an internally thrombosed hemorrhoid on 07/17/17 Male Surgical History: Reports: Circumcision Musculoskeletal Surgical History: Reports: Other (See Below) Other Musculoskeletal Surgeries/Procedures:: bunion removed from foot - SUBSTANCE USE Smoking Status *Q: Never Smoker Second Hand Smoke Exposure: No Days Per Week of Alcohol Use: 1 Recreational Drug Use History: No - HOME MEDS Home Medications: Home Meds Aspirin [[place] Aspirin] 81 mg PO DAILY 02/10/15 [History] Acetaminophen/oxyCODONE [Percocet 325-5 MG] 1 - 2 tab PO Q4H PRN #40 tablet [Rx] Lidocaine 5% 35.44 gm TOP Q6HR PRN #1 tube 07/18/17 [Rx] Polyethylene Glycol 3350 [MiraLAX] 17 gm PO BEDTIME PRN 07/24/17 [History] Psyllium [Metamucil] 1.04 gm PO DAILY PRN 07/24/17 [History] - CURRENT (IN HOUSE) MEDS Current Meds: Current Medications Lactated Ringer's (Ringers, Lactated) 1,000 mls @ 125 mls/hr IV ASDIRECTED ASIA Last Admin: 07/25/17 06:41 Dose: 125 mls/hr Sodium Chloride (Saline Flush) 10 ml FLUSH ASDIRECTED PRN PRN Reason: Keep Vein Open Sodium Chloride (Saline Flush) 2.5 ml FLUSH ASDIRECTED PRN PRN Reason: Keep Vein Open Discontinued Medications Cefoxitin Sodium 2 gm/ Premix 50 mls @ 100 mls/hr IV ONETIME ONE Stop: 07/24/17 15:18
[2017-07-25] MEDS ORDERED: Lidocaine 2% 5 ML SDV ONE (07:24)
[2017-07-25] MEDS ORDERED: Propofol 200 MG/20 ML SDV ONE (07:25)
[2017-07-25] MEDS ORDERED: fentaNYL 100 MCG/2 ML SDV ONE (07:25)
[2017-07-25] MEDS ORDERED: Midazolam 1 MG/ML 2 ML SDV ONE (07:25)
[2017-07-25] MEDS ORDERED: Bupivacaine 0.5% 10 ML SDV ONE ×2 (07:26→08:53)
[2017-07-25] MEDS ORDERED: Gelatin Sponge,Absorbable 12-7 mm Sponge TOP ONE (07:26)
[2017-07-25] MEDS ORDERED: Neostigmine Methylsulfate 1 MG/ML 5 ML Syringe ONE (07:29)
[2017-07-25] MEDS ORDERED: Rocuronium 10 MG/ML 10 ML Syringe ONE (07:29)
[2017-07-25] MEDS ORDERED: Ondansetron 4 MG/2 ML SDV ONE (07:29)
--- NOTE | 2017-07-25 07:46 | PCM.HPR ---
H & P Addendum review - H & P Addendum Review Date of Original H & P: 07/17/17 Date Reviewed: 07/25/17 Time Reviewed: 07:50 Patient was Examined: No Changes
[2017-07-25] MEDS ORDERED: HYDROmorphone 2 MG/ML Syringe ONE (08:16)
[2017-07-25] MEDS ORDERED: fentaNYL 100 MCG/2 ML SDV IVPUSH PRN (08:55)
[2017-07-25] MEDS ORDERED: HYDROmorphone 2 MG/ML Syringe IVPUSH ONE (08:55)
--- NOTE | 2017-07-25 09:02 | PCM.OPNOTE ---
- General Post-Op/Procedure Note Date of Surgery/Procedure: 07/25/17 Operative Procedure(s): Internal hemorrhoidectomy Findings: Right lateral and anterior grade 4 hemorrhoids. The right lateral hemorrhoid was prolapsed and thrombosed. Pre Op Diagnosis: Thrombosed hemorrhoids Post-Op Diagnosis: same Anesthesia Technique: MAC Primary Surgeon: Sarah Patterson EBL in mLs: 20 Condition: Good
[2017-07-25] MEDS ORDERED: Acetaminophen/oxyCODONE 325-5 MG Tab PO PRN (10:20)
[2017-07-25] MEDS ORDERED: Belladonna Alkaloids/Opium 16.2-30 MG Supp RECTAL PRN (11:28)
--- NOTE | 2017-07-25 11:29 | PCM48HPAN ---
Post Anesthesia Note - EVALUATION WITHIN 48HRS OF ANESTHETIC Vital Signs in Normal Range: Yes Patient Participated in Evaluation: Yes Respiratory Function Stable: Yes Airway Patent: Yes Cardiovascular Function Stable: Yes Hydration Status Stable: Yes Pain Control Satisfactory: Yes (uncomfortable, going home to start sitz baths) Nausea and Vomiting Control Satisfactory: Yes Mental Status Recovered: Yes
[2017-07-25] MEDS ORDERED: Lidocaine 2% Jelly 30 ML Tube MUCMEM SCH (12:00)
[2017-07-25 12:26] VITALS: BP 124/70
--- NOTE | 2017-07-26 15:39 | OR ---
SURGEON: POOL PETERSON MD DATE OF PROCEDURE: 07/25/2017 PREOPERATIVE DIAGNOSIS: Grade 4 internal hemorrhoids. POSTOPERATIVE DIAGNOSIS: Grade 4 internal hemorrhoids thrombosed. PROCEDURE PERFORMED: Hemorrhoidectomy. ANESTHESIA: General endotracheal anesthesia. ESTIMATED BLOOD LOSS: 20 mL. FINDINGS: Grade 4 right lateral hemorrhoidal tissue that appeared thrombosed and inflamed. Anterior grade 3 internal hemorrhoids. COMPLICATIONS: None. INDICATIONS: The patient is a 57-year-old male, who presented 1 week ago with grade 4 prolapsed and thrombosed internal hemorrhoids. He was taken to the operating room for hemorrhoidectomy. The patient did well initially, but over the weekend had increasing pain on the left side of his anus. The pain has been getting worse and on physical exam, he had what appeared to be grade 4 internal hemorrhoids, prolapsed and thrombosed on the other side. Decision was made to return to the operating room to remove this hemorrhoidal tissue. The patient and I discussed the procedure as well as expected perioperative course. We discussed the risks, including bleeding, infection, or damage to surrounding structures, including alteration of sphincter muscle function. The patient verbalized understanding and wished to proceed. PROCEDURE IN DETAIL: The patient was brought into the OR. A time-out was completed verifying the patient's name, age, date of , allergies, and procedure to be performed. General endotracheal anesthesia was induced on the OR cart. After the patient was adequately sedated, he was placed on the operating room table in prone position. The anoderm and buttocks were prepped and draped in usual standard fashion. A digital rectal exam was performed, which confirmed a large right lateral internal hemorrhoid. A bivalve speculum was then placed into the anus. The patient's right side appeared to be healing well from his previous surgery 1 week ago. On the left side, there appeared to be a large thrombosed internal hemorrhoid. This was grasped with a clamp and elevated. I attempted to place a running 3-0 chromic suture underneath my clamp. After I had done this, I used cautery to take the excess hemorrhoidal tissue just beneath the clamp. While doing this, I cut my suture. I excised the remaining hemorrhoidal tissue and closed the wound using a running locking 3-0 chromic suture from proximal to distal and then a simple running suture from distal to proximal. This provided adequate hemostasis. The patient had a small amount of residual hemorrhoidal tissue more posterolaterally. This was removed in a similar fashion. I then examined the remainder of the anal canal. The patient had a grade 3 internal hemorrhoid in the anterior position. This appeared normal with no evidence of thrombosis, however, given the fact that the patient had presented after previous operation with thrombosed hemorrhoids, I decided to take these hemorrhoids as well. These were grasped with a clamp and then ran a 3-0 chromic suture underneath the clamp from proximal to distal. The hemorrhoidal tissue was then sharply excised using cautery. I then closed the defect with a running locking stitch from distal to proximal. All hemorrhoidal tissue that was removed, was sent to pathology labeled as hemorrhoids. I then inspected anal canal for hemostasis. The suture lines appeared intact with no evidence of bleeding. I irrigated with normal saline and placed a piece of Gelfoam within the anal canal. I anesthetized the area at the anoderm circumferentially with 0.5% Marcaine plain. A perineal nerve block was performed bilaterally as well. Fluffs and mesh panties were applied. The patient was placed on the OR cart and extubated. He was taken to PACU in stable condition. RICARDO LIZAMA /[id number]
== END 2017-07-25 12:14 | disposition home or self-care (01) ==
LOC: MW.SDS 06:17
PROVIDERS: ATTEND Surgery
DX: K64.5 Perianal venous thrombosis (principal); K64.2 Third degree hemorrhoids; K64.3 Fourth degree hemorrhoids; K64.4 Residual hemorrhoidal skin tags; M19.90 Unspecified osteoarthritis, unspecified site; M54.2 Cervicalgia; G89.29 Other chronic pain; Z79.82 Long term (current) use of aspirin; Z98.890 Other specified postprocedural states
CPT/HCPCS: 46260; A9270; J1170; J2250; J2405; J3010; J7120; 00902; 88304; J2704

== ENCOUNTER 2017-07-26 01:25 | Emergency (ER) | payer BC ==
--- NOTE | 2017-07-26 01:45 | EDM.PDOC ---
ED HPI GENERAL MEDICAL PROBLEM - General Chief Complaint: Genitourinary Problem Stated Complaint: UNABLE TO URINATE Time Seen by Provider: 07/26/17 01:44 Source of Information: Reports: Patient - History of Present Illness INITIAL COMMENTS - FREE TEXT/NARRATIVE: HISTORY AND PHYSICAL: History of present illness: []Patient presents with postop urine retention day 2 post hemorrhoidectomy, he has been 19 hours without urination No fever nausea vomiting chills sweats no chest pain shortness breath headache dizziness palpitation Review of systems: As per history of present illness and below otherwise all systems reviewed and negative. Past medical history: As per history of present illness and as reviewed below otherwise noncontributory. Surgical history: As per history of present illness and as reviewed below otherwise noncontributory. Social history: No reported history of drug or alcohol abuse. Family history: As per history of present illness and as reviewed below otherwise noncontributory. Physical exam: HEENT: Atraumatic, normocephalic, pupils reactive, negative for conjunctival pallor or scleral icterus, mucous membranes moist, throat clear, neck supple, nontender, trachea midline. Lungs: Clear to auscultation, breath sounds equal bilaterally, chest nontender. Heart: S1S2, regular, negative for clicks, rubs, or JVD. Abdomen: Soft, nondistended, nontender. Negative for masses or hepatosplenomegaly. Negative for costovertebral tenderness. Pelvis: Stable nontender. Genitourinary: Deferred. Rectal: Deferred. Extremities: Atraumatic, negative for cords or calf pain. Neurovascular unremarkable. Neuro: Awake, alert, oriented. Cranial nerves II through XII unremarkable. Cerebellum unremarkable. Motor and sensory unremarkable throughout. Exam nonfocal. Diagnostics: [][employer]: []Lopez catheter with leg bag Return in 48 hours for removal Impression: []Postop urine retention Definitive disposition and diagnosis as appropriate pending reevaluation and review of above. Rectal Pain Score (Numeric/FACES): 10 - Related Data Allergies Allergy/AdvReac Type Severity Reaction Status Date / Time No Known Allergies Allergy Verified 07/26/17 01:35 Home Meds: Home Meds Acetaminophen/oxyCODONE [Percocet 325-5 MG] 1 - 2 tab PO Q4H PRN #40 tablet [Rx] Lidocaine 5% 35.44 gm TOP Q6HR PRN #1 tube 07/18/17 [Rx] Polyethylene Glycol 3350 [MiraLAX] 17 gm PO BEDTIME PRN 07/24/17 [History] Psyllium [Metamucil] 1.04 gm PO DAILY PRN 07/24/17 [History] Belladonna/Opium [B & O Supprettes No. 16A] 1 supp RECTAL Q4H #10 supp 07/25/17 [Rx] Past Medical History - Past Health History Medical/Surgical History: Denies Medical/Surgical History HEENT History: Reports: Impaired Vision Other HEENT History: wears glasses Gastrointestinal History: Reports: Hemorrhoids Other Gastrointestinal History: hemorrhoid surgery in the past Genitourinary History: Reports: None Musculoskeletal History: Reports: Arthritis, Neck Pain, Chronic Dermatologic History: Reports: None - Infectious Disease History Infectious Disease History: Reports: Chicken Pox, Measles - Past Surgical History Head Surgeries/Procedures: Reports: None GI Surgical History: Reports: Other (See Below) Other GI Surgeries/Procedures: rt lateral hemorrhoidectomy for an internally thrombosed hemorrhoid on 07/17/17 Male Surgical History: Reports: Circumcision Musculoskeletal Surgical History: Reports: Other (See Below) Other Musculoskeletal Surgeries/Procedures:: bunion removed from foot Social & Family History - Family History Family Medical History: Noncontributory HEENT: Reports: Hearing Impairment Cardiac: Reports: Other (See Below) Other Cardiac Family History: heart disease GI: Reports: Other (See Below) Other GI Family History: Colon Cancer Father : Reports: Renal Calculus Musculoskeletal: Reports: Arthritis Other Musculoskeletal Family History: Father Arthritis Endocrine/Metabolic: Reports: Diabetes, Type I Other Endocrine/Metabolic Family History: Maternal grandfather Diabetes Oncologic: Reports: Colon, Lymphoma, Prostate Other Oncologic Family History: Mother Lymphoma. Father Prostate & colon - Tobacco Use Smoking Status *Q: Never Smoker Second Hand Smoke Exposure: No - Caffeine Use Caffeine Use: Reports: Coffee - Alcohol Use Days Per Week of Alcohol Use: 1 - Recreational Drug Use Recreational Drug Use: No Drug Use in Last 12 Months: No ED ROS GENERAL - Review of Systems Review Of Systems: ROS reveals no pertinent complaints other than HPI. ED EXAM, GENERAL - Physical Exam Exam: See Below Course - Vital Signs Last Recorded V/S: Last Vital Signs Temp 36.7 C 07/26/17 01:31 Pulse 59 L 07/26/17 01:31 Resp 18 07/26/17 01:31 BP Pulse Ox 97 07/26/17 01:31 - Orders/Labs/Meds Labs: Laboratory Tests 07/26/17 Range/Units 01:50 Urine Color YELLOW Urine Appearance CLEAR Urine pH 6.0 (5.0-8.0) Ur Specific [place] 1.025 (1.001-1.035) Urine Protein NEGATIVE (NEGATIVE) mg/dL Urine Glucose (UA) NEGATIVE (NEGATIVE) mg/dL Urine Ketones NEGATIVE (NEGATIVE) mg/dL Urine Occult Blood NEGATIVE (NEGATIVE) Urine Nitrite NEGATIVE (NEGATIVE) Urine Bilirubin NEGATIVE (NEGATIVE) Urine Urobilinogen 0.2 (<2.0) EU/dL Ur Leukocyte Esterase NEGATIVE (NEGATIVE) Urine RBC 0-1 (0-2/HPF) Urine WBC 0-1 (0-5/HPF) Ur Epithelial Cells RARE (NONE-FEW) Urine Bacteria RARE (NEGATIVE) Urine Mucus LIGHT (NONE-MOD) Departure - Departure Time of Disposition: 02:18 Disposition: Home, Self-Care 01 Condition: Good Clinical Impression: Retention of urine, unspecified - Discharge Information Referrals: PCP,None [Primary Care Provider] - Forms: ED Department Discharge Additional Instructions: Return in 48 hours to remove Lopez catheter Return to ER in the interim if fever nausea vomiting chills sweats..should they develop Follow-up with surgeon as scheduled The following information is given to patients seen in the emergency department who are being discharged to home. This information is to outline your options for follow-up care. We provide all patients seen in our emergency department with a follow-up referral. The need for follow-up, as well as the timing and circumstances, are variable depending upon the specifics of your emergency department visit. If you don't have a primary care physician on staff, we will provide you with a referral. We always advise you to contact your personal physician following an emergency department visit to inform them of the circumstance of the visit and for follow-up with them and/or the need for any referrals to a consulting specialist. The emergency department will also refer you to a specialist when appropriate. This referral assures that you have the opportunity for follow-up care with a specialist. All of these measure are taken in an effort to provide you with optimal care, which includes your follow-up. Under all circumstances we always encourage you to contact your private physician who remains a resource for coordinating your care. When calling for follow-up care, please make the office aware that this follow-up is from your recent emergency room visit. If for any reason you are refused follow-up, please contact the [facility] emergency department at and asked to speak to the emergency department charge nurse.
[2017-07-26 02:55] VITALS: BP 112/62
== END 2017-07-26 02:25 | disposition home or self-care (01) ==
LOC: MW.ED 01:25
DX: K91.89 Other postprocedural complications and disorders of digestive system (principal); R33.9 Retention of urine, unspecified; Z98.890 Other specified postprocedural states
CPT/HCPCS: 81001; 99282; 99283

== ENCOUNTER 2019-10-06 08:50 | Day surgery (SDC) | payer BC ==
[~2019-10-06 08:50] MED LIST changes: +Lidocaine 2% 5 ML SDV ONE; +Midazolam 1 MG/ML 2 ML SDV ONE; +Propofol 200 MG/20 ML SDV ONE; +Sodium Chloride 0.9% 10 ML SDV IV PRN; -cefOXitin 2 GM in Premix Bag 1 BAG IV ONE; +fentaNYL 100 MCG/2 ML SDV ONE
--- NOTE | 2019-10-06 09:39 | PCM.PREANE ---
Preanesthetic Assessment - Anesthesia/Transfusion/Family Hx Anesthesia History: Prior Anesthesia Without Reaction Family History of Anesthesia Reaction: No Transfusion History: No Prior Transfusion(s) Intubation History: Unknown - Review of Systems General: No Symptoms Pulmonary: No Symptoms Cardiovascular: No Symptoms Gastrointestinal: No Symptoms Neurological: No Symptoms Other: Reports: None - Physical Assessment Height: 5 ft 10 in Weight: 99.337 kg ASA Class: 2 Mental Status: Alert & Oriented x3 Dentition: Reports: Normal Dentition ROM/Head Extension: Full Lungs: Clear to Auscultation, Normal Respiratory Effort Cardiovascular: Regular Rate, Regular Rhythm - Allergies Allergies/Adverse Reactions: Allergies Allergy/AdvReac Type Severity Reaction Status Date / Time No Known Allergies Allergy Verified 09/30/19 14:07 - Blood Blood Available: No - Anesthesia Plan Pre-Op Medication Ordered: None - Acknowledgements Anesthesia Type Planned: General Anesthesia Pt an Appropriate Candidate for the Planned Anesthesia: Yes Alternatives and Risks of Anesthesia Discussed w Pt/Guardian: Yes Pt/Guardian Understands and Agrees with Anesthesia Plan: Yes Additional Comments: PMH: cheryl- uses CPAP regularly PLAN: tiva PreAnesthesia Questionnaire - Past Health History Medical/Surgical History: Denies Medical/Surgical History HEENT History: Reports: Other (See Below) Other HEENT History: wears glasses, has lower permanent dental retainer Cardiovascular History: Reports: Other (See Below) Other Cardiovascular History: has increased Ferritin levels, hx of hemochromatosis Respiratory History: Reports: Sleep Apnea Other Respiratory History: uses CPAP Gastrointestinal History: Reports: Hemorrhoids, Other (See Below) Other Gastrointestinal History: occasional epigastric pain Genitourinary History: Reports: None Musculoskeletal History: Reports: Arthritis Neurological History: Reports: Other (See Below) Other Neuro History: hx of motion sickness Psychiatric History: Reports: None Endocrine/Metabolic History: Reports: Obesity/BMI 30+ Hematologic History: Reports: Hemochromatosis Immunologic History: Reports: None Oncologic (Cancer) History: Reports: None Dermatologic History: Reports: None - Infectious Disease History Infectious Disease History: Reports: Chicken Pox, Measles - Past Surgical History Head Surgeries/Procedures: Reports: None HEENT Surgical History: Reports: Naso-Sinus Surgery, Other (See Below) Other HEENT Surgeries/Procedures: septoplasty, uvulectomy Cardiovascular Surgical History: Reports: None Respiratory Surgical History: Reports: None GI Surgical History: Reports: Colonoscopy, Other (See Below) Other GI Surgeries/Procedures: hemorrhoidectomy x2 Male Surgical History: Reports: None, Circumcision Endocrine Surgical History: Reports: None Neurological Surgical History: Reports: None Musculoskeletal Surgical History: Reports: Arthroscopic Knee, Carpal Tunnel, Other (See Below) Other Musculoskeletal Surgeries/Procedures:: right bunionectomy, [facility], rt knee arthroscopy Dermatological Surgical History: Reports: None - SUBSTANCE USE Smoking Status *Q: Never Smoker Recreational Drug Use History: No - HOME MEDS Home Medications: Home Meds Aspirin [Adult Low Dose Aspirin EC] 81 mg PO DAILY 08/12/18 [History] - CURRENT (IN HOUSE) MEDS Current Meds: Current Medications Lactated Ringer's (Ringers, Lactated) 1,000 mls @ 125 mls/hr IV ASDIRECTED ASIA Sodium Chloride (Saline Flush) 10 ml FLUSH ASDIRECTED PRN PRN Reason: Keep Vein Open Sodium Chloride (Saline Flush) 2.5 ml FLUSH ASDIRECTED PRN PRN Reason: Keep Vein Open Sodium Chloride (Saline Flush) 10 ml FLUSH ASDIRECTED PRN PRN Reason: Keep Vein Open Sodium Chloride (Saline Flush) 2.5 ml FLUSH ASDIRECTED PRN PRN Reason: Keep Vein Open Sodium Chloride (Normal Saline) 10 ml IV ASDIRECTED PRN PRN Reason: IV Use Discontinued Medications Fentanyl (Sublimaze) Confirm Administered Dose 100 mcg .ROUTE .STK-MED ONE Stop: 10/06/19 08:40 Lidocaine (Xylocaine-Mpf 2%) Confirm Administered Dose 5 ml .ROUTE .STK-MED ONE Stop: 10/06/19 08:39 Midazolam HCl (Versed 1 Mg/Ml) Confirm Administered Dose 2 mg .ROUTE .STK-MED ONE Stop: 10/06/19 08:40 Propofol (Diprivan 20 Ml) Confirm Administered Dose 400 mg .ROUTE .STK-MED ONE Stop: 10/06/19 08:40
[2019-10-06] MEDS ORDERED: Glycopyrrolate 0.2 MG/ML SDV ONE (10:35)
--- NOTE | 2019-10-06 11:27 | PCM.POSTAN ---
POST ANESTHESIA ASSESSMENT - MENTAL STATUS Mental Status: Alert, Oriented - VITAL SIGNS Vital Signs: Last Vital Signs Temp 97.9 F 10/06/19 09:35 Pulse 81 10/06/19 11:08 Resp 18 10/06/19 11:08 BP 110/69 10/06/19 11:08 Pulse Ox 94 L 10/06/19 11:08 - RESPIRATORY Respiratory Status: Respiratory Rate WNL, Airway Patent, O2 Saturation Stable - CARDIOVASCULAR CV Status: Pulse Rate WNL, Blood Pressure Stable - GASTROINTESTINAL GI Status: No Symptoms - POST OP HYDRATION Hydration Status: Adequate & Stable
--- NOTE | 2019-10-06 11:27 | PCM48HPAN ---
Post Anesthesia Note - EVALUATION WITHIN 48HRS OF ANESTHETIC Vital Signs in Normal Range: Yes Patient Participated in Evaluation: Yes Respiratory Function Stable: Yes Airway Patent: Yes Cardiovascular Function Stable: Yes Hydration Status Stable: Yes Pain Control Satisfactory: Yes Nausea and Vomiting Control Satisfactory: Yes Mental Status Recovered: Yes Vital Signs: Last Vital Signs Temp 97.9 F 10/06/19 09:35 Pulse 81 10/06/19 11:08 Resp 18 10/06/19 11:08 BP 110/69 10/06/19 11:08 Pulse Ox 94 L 10/06/19 11:08
[2019-10-06 11:42] VITALS: BP 120/75; PULSE 52
--- NOTE | 2019-10-06 13:33 | PCM.OPNOTE ---
- General Post-Op/Procedure Note Date of Surgery/Procedure: 10/06/19 Operative Procedure(s): Screening colonoscopy, diagnostic EGD Findings: Normal appearing EGD other than questionable hiatal hernia, normal colonoscopy Pre Op Diagnosis: Epigastric pain, screening colonoscopy Post-Op Diagnosis: Epigastric pain, normal colonoscopy Anesthesia Technique: [facility] [place] Primary Surgeon: Sarah Patterson Condition: Good Free Text/Narrative:: Intake & Output 10/05/19 10/06/19 10/06/19 22:59 06:59 14:59 Intake Total 850 Balance 850
--- NOTE | 2019-10-07 18:07 | OR ---
SURGEON: SARAH PATTERSON MD DATE OF PROCEDURE: 10/06/2019 PREOPERATIVE DIAGNOSES: 1. Epigastric pain. 2. Screening colonoscopy. POSTOPERATIVE DIAGNOSES: 1. Epigastric pain. 2. Normal colonoscopy. PROCEDURES PERFORMED: Diagnostic esophagogastroduodenoscopy and screening colonoscopy. PRIMARY SURGEON: Sarah Patterson MD. ANESTHESIA: MAC. INSTRUMENT USED: Olympus endoscope, colonoscope. EXTENT OF EXAM: To the second portion duodenum, to the cecum. PREPARATION: Good. LIMITATIONS: None. INDICATIONS FOR EXAMINATION: The patient is a 59-year-old male who presents with epigastric pain. He is also due for screening colonoscopy. I consented him for both a diagnostic EGD as well as a screening colonoscopy. I explained the procedure; expected perioperative course; and risks including bleeding, infection, or damage to surrounding structures including perforation. He verbalized understanding and wishes to proceed. PROCEDURE IN DETAIL: The patient was brought into the endoscopy suite and placed in a left lateral decubitus position. A time-out was completed verifying the patient's name, age, date of , allergies, and procedure to be performed. Monitored anesthesia care was induced and continuous oxygen was provided via nasal cannula throughout the procedure. A bite block was placed in the patient's mouth. After adequate sedation had been achieved, a well-lubricated endoscope was placed in the patient's mouth and advanced under direct visualization to the second portion of duodenum. This appeared normal and a photograph was taken. Scope was then straightened out and fully withdrawn while examining the color, texture, anatomy, and integrity of the mucosa of the upper GI tract. The duodenum appeared normal as well as the esophagus. No pathology was seen in either of these areas. The scope was brought into the stomach. A photograph was taken of the pylorus and GE junction. Both appeared normal. However, at the middle of the stomach, the patient appeared to either be chronically contracted or have a hiatal hernia. Biopsies were taken of the gastric antrum, body, and fundus and sent for histologic review and H. pylori testing. The scope was removed and this procedure was terminated. A digital rectal exam was performed. This exam was within normal limits. A well-lubricated colonoscope was inserted in the rectum and advanced under direct visualization to the level of the cecum. The cecum was identified by both visual and anatomic landmarks. A photograph was taken of the cecal cap; however, I was unable to retroflex the scope within the cecum due to looping of the scope more proximally. The scope was then fully withdrawn while examining the color, texture, anatomy, and integrity of the mucosa from the cecum to the anal canal. The findings were consistent with normal colonic mucosa. The scope was brought into the rectum and retroflexed to allow visualization of the anal canal opening. This appeared normal and a photograph was taken. Scope was then straightened out and fully withdrawn. The cecum to anus time was 6 minutes. The patient tolerated the procedure well and was transferred to the PACU in stable condition. ENDOSCOPIC DIAGNOSES: 1. Epigastric pain. 2. Normal colonoscopy. RECOMMENDATIONS: The patient will need a followup colonoscopy in 10 years. A recent ultrasound did show cholelithiasis and this may be the cause of his epigastric pain. I will perform a chest and abdominal x-ray prior to then to rule out a large hiatal hernia. RICARDO LIZAMA /[id number]
== END 2019-10-06 11:40 | disposition home or self-care (01) ==
LOC: MW.SDS 08:50
PROVIDERS: ATTEND Surgery
DX: Z12.11 Encounter for screening for malignant neoplasm of colon (principal); K29.50 Unspecified chronic gastritis without bleeding; B96.81 Helicobacter pylori [H. pylori] as the cause of diseases classified elsewhere; G47.33 Obstructive sleep apnea (adult) (pediatric); M17.11 Unilateral primary osteoarthritis, right knee; Z79.82 Long term (current) use of aspirin; Z99.89 Dependence on other enabling machines and devices
CPT/HCPCS: 43239; 45378; J2001; J2250; J2704; J3010; J3490; J7120; 88305; 88312

== ENCOUNTER 2019-10-27 06:31 | Day surgery (SDC) | payer BC ==
[~2019-10-27 06:31] MED LIST changes: -Lidocaine 2% 5 ML SDV ONE; -Midazolam 1 MG/ML 2 ML SDV ONE; -Propofol 200 MG/20 ML SDV ONE; +ceFAZolin 2 GM in Premix Bag 1 BAG IV ONE; -fentaNYL 100 MCG/2 ML SDV ONE
[2019-10-27] MEDS ORDERED: Midazolam 1 MG/ML 2 ML SDV ONE (07:19)
[2019-10-27] MEDS ORDERED: Propofol 200 MG/20 ML SDV ONE (07:19)
[2019-10-27] MEDS ORDERED: fentaNYL 250 MCG/5 ML SDV ONE (07:19)
[2019-10-27] MEDS ORDERED: Lidocaine 2% 5 ML SDV ONE (07:22)
[2019-10-27] MEDS ORDERED: Ketorolac 30 MG/ML SDV ONE (07:22)
[2019-10-27] MEDS ORDERED: Rocuronium 100 MG/10 ML Syringe ONE (07:22)
[2019-10-27] MEDS ORDERED: Ondansetron 4 MG/2 ML SDV ONE (07:22)
[2019-10-27] MEDS ORDERED: Glycopyrrolate 0.2 MG/ML SDV ONE (07:22)
[2019-10-27] MEDS ORDERED: Dexamethasone 4 MG/ML 5 ML MDV ONE (07:22)
[2019-10-27] MEDS ORDERED: Sugammadex Sodium 200 MG/2 ML VIAL ONE (07:28)
[2019-10-27] MEDS ORDERED: Bupivacaine 0.5% 30 ML SDV ONE (07:29)
--- NOTE | 2019-10-27 07:33 | PCM.PREANE ---
Preanesthetic Assessment - Anesthesia/Transfusion/Family Hx Anesthesia History: Prior Anesthesia Without Reaction Family History of Anesthesia Reaction: No Transfusion History: No Prior Transfusion(s) Intubation History: Unknown - Review of Systems General: No Symptoms Pulmonary: No Symptoms (NAGI on ) Cardiovascular: No Symptoms Gastrointestinal: No Symptoms Neurological: No Symptoms Other: Reports: None - Physical Assessment NPO Status Date: 10/26/19 NPO Status Time: 20:30 Vital Signs: Last Vital Signs Temp 97.0 F 10/27/19 07:00 Pulse 49 L 10/27/19 07:00 Resp 16 10/27/19 07:00 BP 109/74 10/27/19 07:00 Pulse Ox 95 10/27/19 07:00 Height: 5 ft 10 in Weight: 99.337 kg ASA Class: 2 Mental Status: Alert & Oriented x3 Airway Class: Mallampati = 2 Dentition: Reports: Normal Dentition, [place](s) (central maxillary) ROM/Head Extension: Full Lungs: Clear to Auscultation, Normal Respiratory Effort Cardiovascular: Regular Rate, Regular Rhythm - Allergies Allergies/Adverse Reactions: Allergies Allergy/AdvReac Type Severity Reaction Status Date / Time No Known Allergies Allergy Verified 10/22/19 11:42 - Blood Blood Available: No - Anesthesia Plan Pre-Op Medication Ordered: None - Acknowledgements Anesthesia Type Planned: General Anesthesia Pt an Appropriate Candidate for the Planned Anesthesia: Yes Alternatives and Risks of Anesthesia Discussed w Pt/Guardian: Yes Pt/Guardian Understands and Agrees with Anesthesia Plan: Yes PreAnesthesia Questionnaire - Past Health History Medical/Surgical History: Denies Medical/Surgical History HEENT History: Reports: Other (See Below) Other HEENT History: wears glasses, has lower permanent dental retainer Cardiovascular History: Reports: Other (See Below) Other Cardiovascular History: has increased Ferritin levels, hx of hemochromatosis Respiratory History: Reports: Sleep Apnea Other Respiratory History: uses CPAP Gastrointestinal History: Reports: Hemorrhoids, Other (See Below) Other Gastrointestinal History: occasional epigastric pain Genitourinary History: Reports: None Musculoskeletal History: Reports: Arthritis Neurological History: Reports: Other (See Below) Other Neuro History: hx of motion sickness Psychiatric History: Reports: None Endocrine/Metabolic History: Reports: Obesity/BMI 30+ Hematologic History: Reports: Hemochromatosis Immunologic History: Reports: None Oncologic (Cancer) History: Reports: None Dermatologic History: Reports: None - Infectious Disease History Infectious Disease History: Reports: Chicken Pox, Measles - Past Surgical History Head Surgeries/Procedures: Reports: None HEENT Surgical History: Reports: Naso-Sinus Surgery, Other (See Below) Other HEENT Surgeries/Procedures: septoplasty, uvulectomy Cardiovascular Surgical History: Reports: None Respiratory Surgical History: Reports: None GI Surgical History: Reports: Colonoscopy, EGD, Other (See Below) Other GI Surgeries/Procedures: hemorrhoidectomy x2 Male Surgical History: Reports: Circumcision Endocrine Surgical History: Reports: None Neurological Surgical History: Reports: None Musculoskeletal Surgical History: Reports: Arthroscopic Knee, Carpal Tunnel, Other (See Below) Other Musculoskeletal Surgeries/Procedures:: right bunionectomy, [facility], rt knee arthroscopy Dermatological Surgical History: Reports: None - SUBSTANCE USE Smoking Status *Q: Never Smoker Recreational Drug Use History: No - HOME MEDS Home Medications: Home Meds Aspirin [Adult Low Dose Aspirin EC] 81 mg PO DAILY 08/12/18 [History] Amoxicillin 1,000 mg PO BID 10/22/19 [History] Clarithromycin 500 mg PO BID 10/22/19 [History] Lansoprazole [Prevacid] 30 mg PO DAILY 10/22/19 [History] - CURRENT (IN HOUSE) MEDS Current Meds: Current Medications Lactated Ringer's (Ringers, Lactated) 1,000 mls @ 125 mls/hr IV ASDIRECTED ASIA Last Admin: 10/27/19 07:00 Dose: 125 mls/hr Sodium Chloride (Saline Flush) 10 ml FLUSH ASDIRECTED PRN PRN Reason: Keep Vein Open Sodium Chloride (Saline Flush) 2.5 ml FLUSH ASDIRECTED PRN PRN Reason: Keep Vein Open Sodium Chloride (Normal Saline) 10 ml IV ASDIRECTED PRN PRN Reason: IV Use Discontinued Medications Dexamethasone (Dexamethasone) Confirm Administered Dose 20 mg .ROUTE .STK-MED ONE Stop: 10/27/19 07:23 Fentanyl (Sublimaze) Confirm Administered Dose 250 mcg .ROUTE .STK-MED ONE Stop: 10/27/19 07:20 Glycopyrrolate (Robinul) Confirm Administered Dose 0.2 mg .ROUTE .STK-MED ONE Stop: 10/27/19 07:23 Cefazolin Sodium/Dextrose 2 gm (/ Premix) 50 mls @ 100 mls/hr IV ONETIME ONE Stop: 10/26/19 08:53 Ketorolac Tromethamine (Toradol) Confirm Administered Dose 30 mg .ROUTE .STK- MED ONE Stop: 10/27/19 07:23 Lidocaine (Xylocaine-Mpf 2%) Confirm Administered Dose 5 ml .ROUTE .STK-MED ONE Stop: 10/27/19 07:23 Midazolam HCl (Versed 1 Mg/Ml) Confirm Administered Dose 2 mg .ROUTE .STK-MED ONE Stop: 10/27/19 07:20 Ondansetron HCl (Zofran) Confirm Administered Dose 4 mg .ROUTE .STK-MED ONE Stop: 10/27/19 07:23 Propofol (Diprivan 20 Ml) Confirm Administered Dose 200 mg .ROUTE .STK-MED ONE Stop: 10/27/19 07:20 Rocuronium [place] (Zemuron) Confirm Administered Dose 100 mg .ROUTE .STK-MED ONE Stop: 10/27/19 07:23
[2019-10-27] MEDS ORDERED: ceFAZolin 1 GM Vial ONE (07:36)
[2019-10-27] MEDS ORDERED: Sodium Chloride 0.9% 20 ML ONE (07:36)
[2019-10-27] MEDS ORDERED: Phenylephrine/Normal Saline 100 MCG/ML 10 ML Syringe ONE (08:30)
[2019-10-27] MEDS ORDERED: fentaNYL 100 MCG/2 ML SDV ONE (08:54)
--- NOTE | 2019-10-27 10:01 | PCM.OPNOTE ---
- General Post-Op/Procedure Note Date of Surgery/Procedure: 10/27/19 Operative Procedure(s): Laparoscopic cholecystectomy Findings: Distended gallbladder with thick omental adhesions and chronic inflammation Pre Op Diagnosis: SYmptomatic cholelithiasis Post-Op Diagnosis: same Anesthesia Technique: General ET Tube Primary Surgeon: Sarah Patterson Fluid Replacement, Intraop: 2,300 Output, Urine Amount: 200 EBL in mLs: 20 Condition: Good
--- NOTE | 2019-10-27 11:50 | OR ---
SURGEON: SARAH PETERSON MD DATE OF PROCEDURE: 10/27/2019 PREOPERATIVE DIAGNOSIS: Symptomatic cholelithiasis. POSTOPERATIVE DIAGNOSIS: Symptomatic cholelithiasis. PROCEDURE PERFORMED: Laparoscopic cholecystectomy. PRIMARY SURGEON: Sarah Peterson MD. ANESTHESIA: General endotracheal anesthesia. FLUIDS: 2300 mL of crystalloid. ESTIMATED BLOOD LOSS: 20 mL. URINE OUTPUT: 200 mL. FINDINGS: Distended gallbladder with thick omental adhesions and chronic inflammation. COMPLICATIONS: None. INDICATIONS: The patient is a 59-year-old male who presents with symptomatic cholelithiasis. I explained the need for a cholecystectomy. I explained the laparoscopic approach and would convert to open should I be unable to take out safely. The patient and I discussed the expected perioperative course including bleeding, infection, or damage to surrounding structures. The patient verbalized understanding and wishes to proceed. PROCEDURE IN DETAIL: The patient was brought into the OR and placed on the OR table in supine position. A time-out was completed verifying the patient's name, age, date of , allergies, and procedure to be performed. General endotracheal anesthesia was induced. After the patient was intubated, the left arm was tucked to the patient's side and a Lopez catheter placed. The abdomen was prepped and draped in usual standard fashion. I anesthetized the infraumbilical fold with 0.5% Marcaine plain. A 15 blade was used to make an incision along the infraumbilical fold. Cautery was used to dissect down through the layers of the subcutaneous fat to the fascia. The fascia was elevated with Rolando's and incised sharply with curved Donohue scissors. I grasped the peritoneum with hemostats and incised this sharply as well. Entry into the abdomen was palpated digitally. A 12 mm Emily trocar was placed in the abdomen and the abdomen allowed to insufflate. I then inserted a 5 mm 30-degree scope and inspected the area underneath my initial trocar placement. No damage to surrounding structures was noted. The patient was placed into reverse Trendelenburg position and airplaned slightly to the left. 5 mm trocars were placed in the following locations; one in the epigastric area, one in the right flank, and one 2 fingerbreadths below the right subcostal margin in the midclavicular line. The dome of the gallbladder was grasped and elevated. The gallbladder itself was quite distended. I placed an aspirating needle through the dome of the gallbladder and aspirated about 40 mL of bilious fluid. This then allowed me to better manipulate the gallbladder. The gallbladder was further elevated and it was noted that the patient had dense omental adhesions along the proximal body of the gallbladder. These were taken down with gentle blunt dissection and hook cautery. Once I had exposed the infundibulum, I began my dissection along the proximal gallbladder wall to achieve my critical view. I first started my dissection laterally and then moved medially. I was able to identify the cystic duct. All the fat and peritoneum around this were cleared away. I dissected off the tissue along the one-third of the proximal cystic plate. I was able to identify the cystic artery. This area was chronically inflamed, making the dissection somewhat difficult. I was eventually able to clear away enough structures to ensure that I had achieved my critical view. I doubly clipped and ligated the cystic duct and artery. I then began my dissection along the cystic plate using hook cautery. There was 1 small vessel going into the gallbladder, which I dissected out completely. Once I was sure of my anatomy, the vessel (likely a vein) was doubly clipped and ligated. Once the gallbladder was cleared away from the cystic plate, it was placed in an Endo Catch bag and removed through the infraumbilical port site. I then inspected my operative field. It was hemostatic with no evidence of bilious leakage. I irrigated the abdomen with 500 mL of normal saline and suctioned this out. The 5 mm trocars were then removed under direct visualization and no bleeding was noted. The abdomen was allowed to desufflate, and I removed my 12 mm port. The fascia at the infraumbilical port site was closed with interrupted 0 Vicryl sutures. The subcutaneous fat layer was closed with a running 3-0 Vicryl stitch. The skin was closed with a running 4-0 Monocryl stitch. The 5 mm trocar sites were closed using interrupted 4-0 Monocryl sutures. Steri-Strips and sterile dressings were applied. All counts were complete and correct at the end of the case. The patient tolerated the procedure well and was taken to the PACU in stable condition. RICARDO LIZAMA /[id number] JESSICA
[2019-10-27] MEDS ORDERED: Haloperidol Lactate 5 MG/ML SDV IM ONE (11:54)
[2019-10-27 13:27] VITALS: PULSE 64
[2019-10-27 13:28] VITALS: BP 112/66
--- NOTE | 2019-10-27 13:59 | PCM48HPAN ---
Post Anesthesia Note - EVALUATION WITHIN 48HRS OF ANESTHETIC Vital Signs in Normal Range: Yes Patient Participated in Evaluation: Yes Respiratory Function Stable: Yes Airway Patent: Yes Cardiovascular Function Stable: Yes Hydration Status Stable: Yes Pain Control Satisfactory: Yes Nausea and Vomiting Control Satisfactory: Yes Mental Status Recovered: Yes Vital Signs: Last Vital Signs Temp 97.5 F 10/27/19 11:10 Pulse 64 10/27/19 13:25 Resp 16 10/27/19 13:25 BP 112/66 10/27/19 13:25 Pulse Ox 92 L 10/27/19 13:25
--- NOTE | 2019-10-27 13:59 | PCM.POSTAN ---
POST ANESTHESIA ASSESSMENT - MENTAL STATUS Mental Status: Alert, Oriented - VITAL SIGNS Vital Signs: Last Vital Signs Temp 97.5 F 10/27/19 11:10 Pulse 64 10/27/19 13:25 Resp 16 10/27/19 13:25 BP 112/66 10/27/19 13:25 Pulse Ox 92 L 10/27/19 13:25 - RESPIRATORY Respiratory Status: Respiratory Rate WNL, Airway Patent, O2 Saturation Stable - CARDIOVASCULAR CV Status: Pulse Rate WNL, Blood Pressure Stable - GASTROINTESTINAL GI Status: No Symptoms - POST OP HYDRATION Hydration Status: Adequate & Stable
== END 2019-10-27 14:07 | disposition home or self-care (01) ==
LOC: MW.SDS 06:31
PROVIDERS: ATTEND Surgery
DX: K80.10 Calculus of gallbladder with chronic cholecystitis without obstruction (principal); K82.8 Other specified diseases of gallbladder; G47.33 Obstructive sleep apnea (adult) (pediatric); M17.11 Unilateral primary osteoarthritis, right knee; K29.50 Unspecified chronic gastritis without bleeding; B96.81 Helicobacter pylori [H. pylori] as the cause of diseases classified elsewhere; E66.9 Obesity, unspecified; Z68.31 Body mass index [BMI] 31.0-31.9, adult; Z99.89 Dependence on other enabling machines and devices; Z79.82 Long term (current) use of aspirin; Z79.899 Other long term (current) drug therapy
CPT/HCPCS: 47562; J0690; J1100; J1630; J2001; J2250; J2370; J2405; J2704; J3010; J3490; J7120; J1885

== ENCOUNTER 2020-10-10 09:40 | Inpatient (IN) | payer BC ==
[~2020-10-10 09:40] MED LIST changes: +Famotidine 20 MG/2 ML SDV IVPUSH SCH; -Lactated Ringers 1,000 ML IV SCH; +Ropivacaine 49.25 ML, Ketorolac 30 MG, EPINEPHrine 0.5 MG, cloNIDine 80 MCG in Sodium C... INJECT SCH; +Scopolamine 1.5 MG Transdermal Patch TRDERM SCH; -Sodium Chloride 0.9% 10 ML SDV IV PRN; -Sodium Chloride 0.9% 10 ML Syringe FLUSH PRN; -Sodium Chloride 0.9% 2.5 ML Syringe FLUSH PRN; +Tranexamic Acid 1,000 MG in Sodium Chloride 0.9% 100 ML IV ONE; -ceFAZolin 2 GM in Premix Bag 1 BAG IV ONE; +ceFAZolin 2 GM in Premix Bag 1 BAG IV SCH
[2020-10-10] MEDS: Lactated Ringers 1,000 ML IV SCH ×2 (10:10→17:10)
--- NOTE | 2020-10-10 10:36 | PCM.PREANE ---
Preanesthetic Assessment - Anesthesia/Transfusion/Family Hx Anesthesia History: Prior Anesthesia Without Reaction Family History of Anesthesia Reaction: No Transfusion History: No Prior Transfusion(s) Intubation History: Unknown - Review of Systems General: No Symptoms Pulmonary: No Symptoms Cardiovascular: No Symptoms Gastrointestinal: No Symptoms Neurological: No Symptoms Other: Reports: None - Physical Assessment Height: 5 ft 10 in Weight: 95.254 kg ASA Class: 2 Mental Status: Alert & Oriented x3 Airway Class: Mallampati = 2 Dentition: Reports: Normal Dentition, [place](s) (x4 upper front) Thyro-Mental Finger Breadths: 3 Mouth Opening Finger Breadths: 3 ROM/Head Extension: Limited/Partial Lungs: Clear to Auscultation, Normal Respiratory Effort Cardiovascular: Regular Rate, Regular Rhythm - Allergies Allergies/Adverse Reactions: Allergies Allergy/AdvReac Type Severity Reaction Status Date / Time No Known Allergies Allergy Verified 10/04/20 08:23 - Blood Blood Available: No - Anesthesia Plan Pre-Op Medication Ordered: None - Acknowledgements Anesthesia Type Planned: Spinal Pt an Appropriate Candidate for the Planned Anesthesia: Yes Alternatives and Risks of Anesthesia Discussed w Pt/Guardian: Yes Pt/Guardian Understands and Agrees with Anesthesia Plan: Yes PreAnesthesia Questionnaire - Past Health History Medical/Surgical History: Denies Medical/Surgical History HEENT History: Reports: Impaired Vision, Other (See Below) Other HEENT History: wears glasses, has lower permanent dental retainer Cardiovascular History: Reports: Other (See Below) Other Cardiovascular History: has increased Ferritin levels, hx of hemochromatosis Respiratory History: Reports: Sleep Apnea Other Respiratory History: uses CPAP Gastrointestinal History: Reports: Hemorrhoids, Other (See Below) Genitourinary History: Reports: None Musculoskeletal History: Reports: Arthritis, Other (See Below) (h/o neck pain) Neurological History: Reports: Other (See Below) Other Neuro History: hx of motion sickness Psychiatric History: Reports: None Endocrine/Metabolic History: Reports: Obesity/BMI 30+ (BMI 30.1) Hematologic History: Reports: Hemochromatosis Immunologic History: Reports: None Oncologic (Cancer) History: Reports: None Dermatologic History: Reports: None - Infectious Disease History Infectious Disease History: Reports: None - Past Surgical History Head Surgeries/Procedures: Reports: None HEENT Surgical History: Reports: Naso-Sinus Surgery, Other (See Below) Other HEENT Surgeries/Procedures: septoplasty, uvulectomy Cardiovascular Surgical History: Reports: None Respiratory Surgical History: Reports: None GI Surgical History: Reports: Colonoscopy, EGD Other GI Surgeries/Procedures: hemorrhoidectomy x2 Male Surgical History: Reports: Circumcision Endocrine Surgical History: Reports: None Neurological Surgical History: Reports: None Musculoskeletal Surgical History: Reports: Arthroscopic Knee, Carpal Tunnel, Oth er (See Below) Other Musculoskeletal Surgeries/Procedures:: right bunionectomy, [facility], rt knee arthroscopy Dermatological Surgical History: Reports: None - SUBSTANCE USE Tobacco Use Status *Q: Never Tobacco User - HOME MEDS Home Medications: Home Meds Aspirin [Adult Low Dose Aspirin EC] 81 mg PO DAILY 08/12/18 [History] - CURRENT (IN HOUSE) MEDS Current Meds: Current Medications Famotidine (Pepcid) 40 mg IVPUSH ONARRIVE ASIA Last Admin: 10/10/20 10:29 Dose: 40 mg Documented by: Ropivacaine 49.25 ml/Ketorolac Tromethamine 30 mg/Epinephrine HCl 0.5 mg/Clonidine HCl 80 mcg/ Sodium Chloride 75 mls @ 50 mls/sec INJECT ASDIRECTED ASIA Cefazolin Sodium/Dextrose 2 gm (/ Premix) 50 mls @ 100 mls/hr IV ONCALL ASIA Lactated Ringer's (Ringers, Lactated) 1,000 mls @ 100 mls/hr IV ASDIRECTED ASIA Last Admin: 10/10/20 10:10 Dose: 100 mls/hr Documented by: Scopolamine (Transderm-Scop) 1.5 mg TRDERM ONARRIVE ASIA Last Admin: 10/10/20 10:28 Dose: 1.5 mg Documented by: Discontinued Medications Tranexamic Acid 1,000 mg/ (Sodium Chloride) 110 mls @ 600 mls/hr IV ASDIRECTED ONE Stop: 10/10/20 08:10
[2020-10-10] MEDS ORDERED: Ondansetron 4 MG/2 ML SDV ONE (11:11)
[2020-10-10] MEDS ORDERED: Midazolam 1 MG/ML 2 ML SDV ONE (11:12)
[2020-10-10] MEDS ORDERED: Propofol 200 MG/20 ML SDV ONE ×2 (11:12→15:26)
[2020-10-10] MEDS ORDERED: Dexamethasone 4 MG/ML 5 ML MDV ONE (11:12)
[2020-10-10] MEDS ORDERED: Ketorolac 30 MG/ML SDV ONE (11:12)
[2020-10-10] MEDS ORDERED: fentaNYL 100 MCG/2 ML SDV ONE ×2 (11:12→15:20)
[2020-10-10] MEDS ORDERED: Sodium Chloride 0.9% 20 ML ONE (11:13)
[2020-10-10] MEDS ORDERED: ceFAZolin 1 GM Vial ONE (11:13)
[2020-10-10] MEDS ORDERED: Bupivacaine 0.5% 30 ML SDV ONE (11:29)
[2020-10-10] MEDS ORDERED: Lidocaine 2% 5 ML SDV ONE (12:46)
[2020-10-10] MEDS ORDERED: ePHEDrine 50 MG/ML SDV ONE (13:46)
[2020-10-10] MEDS ORDERED: Vancomycin 1 GM SDV ONE (14:04)
[2020-10-10] MEDS ORDERED: Morphine 10 MG/ML Syringe IVPUSH ONE (15:09)
[2020-10-10] MEDS ORDERED: Docusate Sodium 100 MG Cap PO PRN (16:22)
[2020-10-10] MEDS ORDERED: Bisacodyl 10 MG Supp RECTAL PRN (16:22)
[2020-10-10] MEDS ORDERED: Morphine 2 MG/ML SYRINGE IVPUSH PRN (16:22)
[2020-10-10] MEDS ORDERED: Aluminum Hydroxide/Magnesium Hydroxide/Simethicone Susp 30 ML Cup PO PRN (16:22)
[2020-10-10] MEDS ORDERED: Sodium Chloride 0.9% 2.5 ML Syringe FLUSH PRN (16:22)
[2020-10-10] MEDS ORDERED: traMADol 50 MG Tab PO PRN (16:22)
[2020-10-10] MEDS ORDERED: Acetaminophen/oxyCODONE 325-5 MG Tab PO PRN (16:22)
[2020-10-10] MEDS ORDERED: Ondansetron 4 MG/2 ML SDV IVPUSH PRN (16:22)
[2020-10-10] MEDS ORDERED: diphenhydrAMINE 25 MG Cap PO PRN (16:22)
[2020-10-10] MEDS ORDERED: Sodium Chloride 0.9% 10 ML Syringe FLUSH PRN (16:22)
--- NOTE | 2020-10-10 16:30 | PCM.OPNOTE ---
- General Post-Op/Procedure Note Date of Surgery/Procedure: 10/10/20 Operative Procedure(s): right medial pka Findings: grade 4 tibial chondromalacia Pre Op Diagnosis: right knee medial oa Post-Op Diagnosis: Same Anesthesia Technique: Combo Spinal/Epidural, Regional Block Primary Surgeon: Elton Mary Anesthesia Provider: Maximilian Santillan [employer] Processor: Ana Collins EBL in mLs: 150 Complications: None Condition: Good Free Text/Narrative:: Intake & Output 10/10/20 10/10/20 10/10/20 06:59 14:59 22:59 Output Total 320 Balance -320
--- NOTE | 2020-10-10 16:59 | PCM.POSTAN ---
POST ANESTHESIA ASSESSMENT - MENTAL STATUS Mental Status: Alert, Oriented - VITAL SIGNS Vital Signs: Last Vital Signs Temp 36.1 C 10/10/20 16:20 Pulse 53 L 10/10/20 16:46 Resp 14 10/10/20 16:46 BP 106/55 L 10/10/20 16:46 Pulse Ox 96 10/10/20 16:46 - RESPIRATORY Respiratory Status: Respiratory Rate WNL, Airway Patent, O2 Saturation Stable - CARDIOVASCULAR CV Status: Pulse Rate WNL, Blood Pressure Stable - GASTROINTESTINAL GI Status: No Symptoms - PAIN Pain Score: 0 - POST OP HYDRATION Hydration Status: Adequate & Stable - OBSERVATIONS Free Text/Narrative:: No anesthesia problems
[2020-10-10] MEDS: Ketorolac 30 MG/ML SDV IVPUSH SCH ×2 (20:07→22:04)
--- NOTE | 2020-10-10 20:17 | OR ---
SURGEON: Elton Mary DATE OF PROCEDURE: 10/10/2020 PREOPERATIVE DIAGNOSIS: Right knee medial osteoarthritis. POSTOPERATIVE DIAGNOSIS: Right knee medial osteoarthritis. PROCEDURE: Right knee medial partial knee arthroplasty. PRIMARY SURGEON: Elton Mary DO MILL OILER: LAURA Buckner ROLE OF MILL OILER: Nurse practitioner, LAURA Buckner, played an essential role in assisting in this case, helping to position the patient, retract structures as needed, as well as suturing and cutting sutures as indicated. Her presence improved patient's safety and decreased operative time. ANESTHESIA: Maximilian Santillan CRNA, spinal plus regional block. FLUID: Lactated Ringer's solution. ESTIMATED BLOOD LOSS: 150 mL. COMPLICATIONS: None. SPECIMEN: None. DISCHARGE DISPOSITION: Stable to PACU. HISTORY AND INDICATIONS FOR THE PROCEDURE: The patient was seen preoperatively in the clinic. He failed nonoperative treatment. Preoperative imaging confirmed the above-mentioned diagnosis. Risks and goals of the procedure were explained to the patient and informed consent was obtained. DETAILS OF PROCEDURE: The patient was seen preoperatively by myself and the Anesthesia staff in the preoperative holding area where the operative site was marked. He was brought to the operative suite by Anesthesia staff where spinal anesthesia plus regional block was performed. A sterile Lopez catheter was placed. A well-padded tourniquet was placed on the right thigh. The left lower extremity was placed into a stirrup and the right lower extremity was placed into a leg pierce at the thigh under the tourniquet, which was well padded. All extremities were found to be well padded. A time-out was called identifying the correct patient, the correct procedure, the correct site, and that antibiotics were given within appropriate period of time. An incision was made just on the medial aspect, just distal to the superior aspect of the patella, and then carried down medial to the tibial tubercle. The right lower extremity was exsanguinated prior to incision and tourniquet was raised to 250 mmHg for 104 minutes and let down during cementing. A medial parapatellar arthrotomy was then made, infrapatellar fat pad was removed. The anterior portion of the medial meniscus was removed. The medial proximal tibia was then visualized using Bovie electrocautery and pickups. We then placed a lamina door manager in the notch for lateral retraction. I then placed an extramedullary tibial guide at 0 degrees, so could put this into position, and then made my horizontal and vertical cut. The vertical cut was just medial to the medial tibial spine at his ACL insertion. This was then removed. I then trialed this. This was not enough of a cut, so I replaced the guide and then made another cut. I was able to get an 8 mm guide in and a 9 posteriorly. We then placed our distal femoral guide on. I then used the guide to make sure that this was in line with the femur and pointing toward the ASIS. I then pinned this in place. I made my distal cut. I then used the minus 1 block with the knee in flexion to place my block for the posterior and chamfer cuts. These were then made. I then placed my femoral component on and a trial tibia component at 8 mm. I was unable to get the 8 mm in. I then made another tibial cut and was able to get the 8 mm in. I pinned the femur in place and then drilled holes for the femur. I then inserted my dimple into the posterior hole to hold it in place, removed my pin, so I could take it through range of motion. At that point, I found that it was too tight posteriorly in flexion. So I removed my components. I then evaluated the tibial plateau, which appeared to have just a slight anterior slope. So I replaced my cutting guide and added more slope and then made my cut again to give it the appropriate 0 degree slope. We then replaced the trial components, which did nicely, with a number 9 tibial trial component. We then removed those components and then placed my tibial guide on. This was a #4 for measuring anterior, posterior, medial, lateral. I then pinned this in place. When I made the posterior guide hole, the drill bit cold-welded into the guide. Fortunately, this was all the way down. I then took some time to remove this carefully so as not to damage the plateau and the guide hole. This took a little bit of time. I then replaced the guide after removing the drill bit and then made my anterior hole. I then irrigated copiously with saline and then placed my final components in with a 9 spacer, which provided good stability throughout range of motion. We then removed all our components, copiously irrigated with saline, dried our tibia and femur, and then cemented our components in place at approximately 30 degrees of flexion, removing any extra cement from around the components. We let the tourniquet down. I did control some bleeding with electrocautery. After this was done, I irrigated again with iodine, dried it, and then applied some Saundra posteriorly as there was some oozing posteriorly. We then placed the tibial polyethylene component on, which locked in place nicely. We then took it through a range of motion and was stable throughout range of motion with full range of motion. I then irrigated again and then placed tranexamic acid within the joint space and then closed with two #5 Ethibond [id number] sutures inferior to the patella and at the superior most portion of the patella in the incision. My assist then closed the arthrotomy with Stratafix and then closed subcutaneous layer with Stratafix and then applied vel followed by fluffs, ABD, and a Medipore tape. The patient was then allowed to awaken from anesthesia and taken to the PACU in stable condition. [id number] / MODL /[id number]
[2020-10-10] MEDS: ceFAZolin 2 GM in Premix Bag 1 BAG IV SCH (22:05)
[2020-10-11] MEDS: Lactated Ringers 1,000 ML IV SCH (03:17)
[2020-10-11] MEDS: Ketorolac 30 MG/ML SDV IVPUSH SCH (03:36)
[2020-10-11] MEDS: ceFAZolin 2 GM in Premix Bag 1 BAG IV SCH (06:36)
--- NOTE | 2020-10-11 07:01 | PCM48HPAN ---
Post Anesthesia Note - EVALUATION WITHIN 48HRS OF ANESTHETIC Vital Signs in Normal Range: Yes Patient Participated in Evaluation: Yes Respiratory Function Stable: Yes Airway Patent: Yes Cardiovascular Function Stable: Yes Hydration Status Stable: Yes Pain Control Satisfactory: Yes (Pain 0) Nausea and Vomiting Control Satisfactory: Yes Mental Status Recovered: Yes Vital Signs: Last Vital Signs Temp 36.1 C 10/11/20 03:00 Pulse 48 L 10/11/20 03:00 Resp 17 10/11/20 03:00 BP 109/57 L 10/11/20 03:00 Pulse Ox 98 10/11/20 03:00 - COMMENTS/OBSERVATIONS Free Text/Narrative:: Doing well. No problems noted post.
[2020-10-11] MEDS ORDERED: Famotidine 20 MG Tab PO SCH (07:30)
--- NOTE | 2020-10-11 08:29 | PCM.DCSUM1 ---
Discharge Summary - Hospital Course Free Text/Narrative:: "Agusto" underwent Right Medial Partial Knee Arthroplasty 10/10/[address] Elton Mary. No known surgical complications. Admitted to [facility] for postop care and PT. Overnight, Agusto did well. VSS/afebrile. Ate supper and breakfast without N/V. Pain controlled with IV Toradol. He did not necessitate any additional narcotics. Lopez was removed after transfer to [facility] from PACU. Voiding. Prophylactic antibiotic : Ancef 2gm with 2 additional doses completed after surgery. Hg 13.0 Agusto is sitting up in the chair this morning. Due to the timing of his admission to [facility], he was not seen yesterday by PT. He will have PT this morning, with instructions on maneuvering stairs. Once this is done, he feels ready to go home and I concur with this. DVT prophylaxis : SCDs, early ambulation and Aspirin 325mg (will start today). Surgical dressing CDI. This was removed; surgical incision well approximated with vel, minimal soft tissue swelling. No pitting edema. Sensation intact to LE. Follow up appt has been scheduled for 3 weeks post-op at ortho clinic, for suture removal. Agusto was informed that if he has any questions or acute concerns, to call clinic. Outpatient PT has been set up at [facility] He has a walker for use at home - Discharge Data Discharge Date: 10/11/20 Discharge Disposition: Home, Self-Care 01 Condition: Good - Referral to Home Health Primary Care Physician: Jimmie Gonzalez MD - Patient Summary/Data Operative Procedure(s) Performed: right medial pka Consults: Consultations 10/10/20 16:23 PT Evaluation and Treatment [CONS] Routine Hospital Course: see narrative above - Patient Instructions Diet: Usual Diet as Tolerated Activity: Apply Ice (Use [facility] ice pad anytime not ambulating to minimize swelling and decrease pain), Elevate Extremity (when elevating, place pillow under your heel. Please do NOT place pillow under your knee ), Full Weight Bearing (weight bearing as tolerates on right leg), No Strenuous Activities Driving: Do Not Drive Driving, Other: no driving until seen by Dr. Mary in 6 weeks Showering/Bathing: May Shower, No Tub Bathing/Swimming (no hot tubs ) Showering/Bathing, Other: when showering, you do not need to cover your bandage. Notify Provider of: Fever, Increased Pain, Swelling and Redness, Drainage Other/Special Instructions: Refer to your KNEE NOTEBOOK if you have additional questions. For pain management : 1) Celebrex twice daily (new prescription) Take with breakfast and supper as you need to take with food. Do NOT take any other over the counter anti-inflammatories such as Aleve, Advil or Ibuprofen. 2) Tylenol (acetaminophen) three times daily. 3) Tramadol (pain medication) can be utilized either before therapy or after therapy or at bedtime in place of the Tylenol if needed. 4) Ice therapy to keep swelling down. Interventions to decrease risk of blood clots. 1) compression stockings Apply in the morning and remove prior to bedtime. 2) ambulation. 3) Aspirin 325mg daily - Discharge Plan Prescriptions/Med Rec: Acetaminophen 1 - 2 tab PO Q8H #100 tablet Celecoxib [CeleBREX] 200 mg PO BID #60 cap traMADol [Ultram] 50 - 100 mg PO Q6H PRN #20 tablet PRN Reason: Pain Home Medications: Home Meds Acetaminophen 1 - 2 tab PO Q8H #100 tablet 10/11/20 [Rx] Aspirin [Ecotrin EC] 325 mg PO DAILY tab.ec 10/11/20 [Rx] Celecoxib [CeleBREX] 200 mg PO BID #60 cap 10/11/20 [Rx] Docusate Sodium [Colace] 100 mg PO BID PRN cap 10/11/20 [Rx] polyethylene glycoL 3350 [MiraLAX] 17 gm PO DAILY PRN packet 10/11/20 [Rx] traMADol [Ultram] 50 - 100 mg PO Q6H PRN #20 tablet 10/11/20 [Rx] Referrals: Ana Collins NP [Nurse Practitioner] - 11/03/20 10:40 am - Discharge Summary/Plan Comment DC Time >30 min.: No - General Info Date of Service: 10/11/20 (0800) Admission Dx/Problem (Free Text: s/p Right partial knee arthroplasty Functional Status: Reports: Pain Controlled (IV Toradol 30mg q6h ), Tolerating Diet (ate supper last night and just finished breakfast with no N/V), Ambulating (has been up with staff and walker in his room), Urinating - Review of Systems General: Denies: Fever Pulmonary: Denies: No Symptoms Cardiovascular: Denies: No Symptoms Gastrointestinal: Denies: Abdominal Pain, Nausea, Vomiting Musculoskeletal: Reports: Joint Pain (pain tolerable to right knee) Neurological: Reports: No Symptoms Psychiatric: Reports: No Symptoms - Patient Data Vitals - Most Recent: Last Vital Signs Temp 36.1 C 10/11/20 03:00 Pulse 48 L 10/11/20 03:00 Resp 17 10/11/20 03:00 BP 109/57 L 10/11/20 03:00 Pulse Ox 98 10/11/20 03:00 Weight - Most Recent: 95.254 kg I&O - Last 24 hours: Intake & Output 10/10/20 10/11/20 10/11/20 22:59 06:59 14:59 Intake Total 1900 1100 Output Total 570 650 Balance 1330 450 Lab Results - Last 24 hrs: Laboratory Results - last 24 hr 10/10/20 10/11/20 Range/Units 10:15 05:52 Hgb 13.0 (13.0-17.0) g/dL Hct 37.4 L (38.0-50.0) % Blood Type AB POSITIVE Antibody Screen NEGATIVE Med Orders - Current: Current Medications Al Hydroxide/Mg Hydroxide (Mag-Al Plus) 30 ml PO Q4H PRN PRN Reason: Indigestion Aspirin (Ecotrin) 325 mg PO DAILY [facility] Bisacodyl (Dulcolax) 10 mg RECTAL DAILY PRN PRN Reason: Constipation Celecoxib (Celebrex) 200 mg PO BID [facility] Diphenhydramine HCl (Benadryl) 25 - 50 mg PO Q6H PRN PRN Reason: Itching Docusate Sodium (Colace) 100 mg PO BID PRN PRN Reason: Constipation Famotidine (Pepcid) 40 mg PO ACBREAKFAST [facility] Last Admin: 10/11/20 06:37 Dose: 40 mg Documented by: Lactated Ringer's (Ringers, Lactated) 1,000 mls @ 100 mls/hr IV ASDIRECTED [facility] Last Admin: 10/11/20 03:17 Dose: 100 mls/hr Documented by: Morphine Sulfate (Morphine) 1 - 2 mg IVPUSH Q3H PRN PRN Reason: Pain Ondansetron HCl (Zofran) 4 mg IVPUSH Q6H PRN PRN Reason: Nausea/Vomiting Oxycodone/Acetaminophen (Percocet 325-5 Mg) 1 - 2 tab PO Q4H PRN PRN Reason: Pain Polyethylene Glycol (Miralax) 17 gm PO DAILY [facility] Scopolamine (Transderm-Scop) 1.5 mg TRDERM ONARRIVE [facility] Last Admin: 10/10/20 10:28 Dose: 1.5 mg Documented by: Sodium Chloride (Saline Flush) 10 ml FLUSH ASDIRECTED PRN PRN Reason: Keep Vein Open Sodium Chloride (Saline Flush) 2.5 ml FLUSH ASDIRECTED PRN PRN Reason: Keep Vein Open Tramadol HCl (Ultram) 50 - 100 mg PO Q6H PRN PRN Reason: Pain Discontinued Medications Bupivacaine HCl (Marcaine 0.5%) Confirm Administered Dose 30 ml .ROUTE .STK-MED ONE Stop: 10/10/20 11:30 Cefazolin Sodium (Ancef) Confirm Administered Dose 2 gm .ROUTE .STK-MED ONE Stop: 10/10/20 11:14 Dexamethasone (Dexamethasone) Confirm Administered Dose 20 mg .ROUTE .STK-MED ONE Stop: 10/10/20 11:13 Ephedrine Sulfate (Ephedrine Sulfate) Confirm Administered Dose 100 mg .ROUTE .STK-MED ONE Stop: 10/10/20 13:47 Famotidine (Pepcid) 40 mg IVPUSH ONARRIVE [facility] Last Admin: 10/10/20 10:29 Dose: 40 mg Documented by: Fentanyl (Sublimaze) Confirm Administered Dose 100 mcg .ROUTE .STK-MED ONE Stop: 10/10/20 11:13 Fentanyl (Sublimaze) Confirm Administered Dose 100 mcg .ROUTE .STK-MED ONE Stop: 10/10/20 15:21 Tranexamic Acid 1,000 mg/ (Sodium Chloride) 110 mls @ 600 mls/hr IV ASDIRECTED ONE Stop: 10/10/20 08:10 Last Admin: 10/10/20 18:15 Dose: Not Given Documented by: Ropivacaine 49.25 ml/Ketorolac Tromethamine 30 mg/Epinephrine HCl 0.5 mg/Clonidine HCl 80 mcg/ Sodium Chloride 75 mls @ 50 mls/sec INJECT ASDIRECTED [facility] Sodium Chloride (Normal Saline) Confirm Administered Dose 20 mls @ as directed .ROUTE .STK-MED ONE Stop: 10/10/20 11:14 Acetaminophen (Ofirmev) Confirm Administered Dose 100 mls @ as directed .ROUTE .STK-MED ONE Stop: 10/10/20 11:30 Cefazolin Sodium/Dextrose 2 gm (/ Premix) 50 mls @ 100 mls/hr IV Q8H ASIA Stop: 10/11/20 06:29 Last Admin: 10/11/20 06:36 Dose: 100 mls/hr Documented by: Ketorolac Tromethamine (Toradol) Confirm Administered Dose 30 mg .ROUTE .STK-MED ONE Stop: 10/10/20 11:13 Ketorolac Tromethamine (Toradol) 30 mg IVPUSH Q6H ASIA Stop: 10/11/20 05:00 Last Admin: 10/11/20 03:36 Dose: 30 mg Documented by: Lidocaine (Xylocaine-Mpf 2%) Confirm Administered Dose 5 ml .ROUTE .STK-MED ONE Stop: 10/10/20 12:47 Midazolam HCl (Versed 1 Mg/Ml) Confirm Administered Dose 2 mg .ROUTE .STK-MED ONE Stop: 10/10/20 11:13 Morphine Sulfate (Morphine) 8 mg IVPUSH ONETIME ONE Stop: 10/10/20 15:10 Last Admin: 10/10/20 18:16 Dose: Not Given Documented by: Ondansetron HCl (Zofran) Confirm Administered Dose 4 mg .ROUTE .STK-MED ONE Stop: 10/10/20 11:12 Propofol (Diprivan 20 Ml) Confirm Administered Dose 600 mg .ROUTE .STK-MED ONE Stop: 10/10/20 11:13 Propofol (Diprivan 20 Ml) Confirm Administered Dose 200 mg .ROUTE .STK-MED ONE Stop: 10/10/20 15:27 Tranexamic Acid (Cyklokapron) Confirm Administered Dose 1,000 mg .ROUTE .STK-MED ONE Stop: 10/10/20 12:54 Vancomycin HCl (Vancomycin) Confirm Administered Dose 1 gm .ROUTE .STK-MED ONE Stop: 10/10/20 14:05 - Exam Quality Assessment: Reports: DVT Prophylaxis (ASa 325mg will start today, ambulation, and bilateral SCDs ) General: Reports: Alert, Oriented, Cooperative, No Acute Distress HEENT: Reports: Pupils Equal Lungs: Reports: Normal Respiratory Effort Extremities: Normal Capillary Refill, Other (Sensation intact to RLE. ). No: Pedal Edema, Increased Warmth Skin: Reports: Warm, Dry Wound/Incisions: Reports: Dressing Dry and Intact, No Drainage, Other (incision well approximated with vel. No active drainage. No surrounding erythema. AquaCell bandage applied.). Denies: Erythema Neurological: Reports: Normal Speech, Normal Tone Psy/Mental Status: Reports: Alert, Normal Affect, Normal Mood
[2020-10-11 08:36] VITALS: BP 120/70; PULSE 55
--- NOTE | 2020-10-11 08:52 | CR ---
Indication: Postop assessment Technique: Two views of the right knee were obtained postoperatively Comparison: In August 25, 2020 preoperative study Findings: There has been a medial hemiarthroplasty. There is osteoarthritis of the patellofemoral and lateral compartment. There are no unexpected findings given an immediate postoperative study Impression: Expected appearance immediately status post medial hemiarthroplasty. No unexpected findings. Dictated by Hernando Fields MD @ Oct 11 2020 8:50AM Signed by Dr. Hernando Fields @ Oct 11 2020 8:51AM
[2020-10-11] MEDS ORDERED: Aspirin 325 MG Tab.EC PO SCH (09:00)
[2020-10-11] MEDS ORDERED: Polyethylene Glycol 3350 Powder 17 GM Packet PO SCH (09:00)
[2020-10-11] MEDS ORDERED: Celecoxib 100 MG Cap PO SCH (09:00)
== END 2020-10-11 10:47 | disposition home or self-care (01) | DRG 302 ==
LOC: MW.SDS 09:40 → MW.MS 16:33
PROVIDERS: ADMIT Orthopaedic Surgery; ATTEND Orthopaedic Surgery
PROC: 0SRC0L9 Replacement of Right Knee Joint with Medial Unicondylar Synthetic Substitute, Cemented, Open Approach (ICD-10-PCS; principal; 2020-10-10)
DX: M17.11 Unilateral primary osteoarthritis, right knee (principal); M51.26 Other intervertebral disc displacement, lumbar region; G47.00 Insomnia, unspecified; J34.3 Hypertrophy of nasal turbinates; H54.7 Unspecified visual loss; M19.90 Unspecified osteoarthritis, unspecified site; E66.9 Obesity, unspecified; E83.119 Hemochromatosis, unspecified
CPT/HCPCS: 01402; 36415; 73560-26-RT; 73560-RT; 85014; 85018; 86850; 86900; 86901; 97110-GP; 97161-GP; A9270-GY; J0131; J0171; J0690; J0735; J1100; J1885; J2001; J2250; J2405; J2704; J2795; J3010; J3370; J3490; J7120

== ENCOUNTER 2020-10-20 21:25 | Emergency (ER) | payer BC ==
[2020-10-20] MEDS ORDERED: Sodium Chloride 0.9% 2.5 ML Syringe FLUSH PRN (21:41)
[2020-10-20] MEDS ORDERED: Sodium Chloride 0.9% 10 ML Syringe FLUSH PRN (21:41)
--- NOTE | 2020-10-20 21:44 | EDM.PDOC ---
ED HPI GENERAL MEDICAL PROBLEM - General Chief Complaint: Skin Complaint Stated Complaint: RIGHT KNEE INFECTION Time Seen by Provider: 10/20/20 21:26 Source of Information: Reports: Patient History Limitations: Reports: No Limitations - History of Present Illness INITIAL COMMENTS - FREE TEXT/NARRATIVE: 60-year-old male past medical history recent partial right knee replacement 10 days ago presents for concern for infection in the knee. Patient notes that he has been healing well, denies fevers, nausea, vomiting, redness or increasing pain around the knee. Today however he noticed a couple large fluid-filled blisters. He just wants to get checked out to make sure that everything looks good. - Related Data Allergies Allergy/AdvReac Type Severity Reaction Status Date / Time No Known Allergies Allergy Verified 10/20/20 21:42 Home Meds: Home Meds Acetaminophen 1 - 2 tab PO Q8H #100 tablet 10/11/20 [Rx] Celecoxib [CeleBREX] 200 mg PO BID #60 cap 10/11/20 [Rx] Past Medical History - Past Health History Medical/Surgical History: Denies Medical/Surgical History HEENT History: Reports: Impaired Vision, Other (See Below) Other HEENT History: wears glasses, has lower permanent dental retainer Cardiovascular History: Reports: Other (See Below) Other Cardiovascular History: has increased Ferritin levels, hx of hemochromato sis Respiratory History: Reports: Sleep Apnea Other Respiratory History: uses CPAP Gastrointestinal History: Reports: Hemorrhoids, Other (See Below) Genitourinary History: Reports: None Musculoskeletal History: Reports: Arthritis, Other (See Below) Neurological History: Reports: Other (See Below) Other Neuro History: hx of motion sickness Psychiatric History: Reports: None Endocrine/Metabolic History: Reports: Obesity/BMI 30+ Hematologic History: Reports: Hemochromatosis Immunologic History: Reports: None Oncologic (Cancer) History: Reports: None Dermatologic History: Reports: None - Infectious Disease History Infectious Disease History: Reports: None - Past Surgical History Head Surgeries/Procedures: Reports: None HEENT Surgical History: Reports: Naso-Sinus Surgery, Other (See Below) Other HEENT Surgeries/Procedures: septoplasty, uvulectomy Cardiovascular Surgical History: Reports: None Respiratory Surgical History: Reports: None GI Surgical History: Reports: Colonoscopy, EGD Other GI Surgeries/Procedures: hemorrhoidectomy x2 Male Surgical History: Reports: Circumcision Endocrine Surgical History: Reports: None Neurological Surgical History: Reports: None Musculoskeletal Surgical History: Reports: Arthroscopic Knee, Carpal Tunnel, Other (See Below) Other Musculoskeletal Surgeries/Procedures:: right bunionectomy, [facility], rt knee arthroscopy Dermatological Surgical History: Reports: None Social & Family History - Family History Family Medical History: No Pertinent Family History HEENT: Reports: Hearing Impairment Cardiac: Reports: Other (See Below) Other Cardiac Family History: heart disease GI: Reports: Other (See Below) Other GI Family History: Colon Cancer Father : Reports: Renal Calculus Musculoskeletal: Reports: Arthritis Other Musculoskeletal Family History: Father Arthritis Endocrine/Metabolic: Reports: Diabetes, Type I Other Endocrine/Metabolic Family History: Maternal grandfather Diabetes Oncologic: Reports: Colon, Lymphoma, Prostate Other Oncologic Family History: Mother Lymphoma. Father Prostate & colon - Caffeine Use Caffeine Use: Reports: Coffee, Soda ED ROS GENERAL - Review of Systems Review Of Systems: Comprehensive ROS is negative, except as noted in HPI. ED EXAM, SKIN/RASH Exam: See Below Exam Limited By: No Limitations General Appearance: Alert, WD/WN, No Apparent Distress Throat/Mouth: Normal Voice, No Airway Compromise Head: Atraumatic, Normocephalic Neck: Normal Inspection Respiratory/Chest: No Respiratory Distress, No Accessory Muscle Use Cardiovascular: Normal Peripheral Pulses Extremities: Normal Inspection, Other (post surgical changes to R knee, incision site is well appearing with vel in place, no surrounding erythema, mild swelling, no drainage, non-TTP, no warmth, 2x 2-cm fluid filled blisters at lateral aspect of the knee) Neurological: Alert Psychiatric: Normal Affect, Normal Mood Skin: Warm, Dry, Intact, Normal Color Course - Vital Signs Last Recorded V/S: Last Vital Signs Temp 97.0 F 10/20/20 21:38 Pulse 80 10/20/20 21:38 Resp 16 10/20/20 21:38 BP 129/77 10/20/20 21:38 Pulse Ox 98 10/20/20 21:38 - Orders/Labs/Meds Orders: Active Orders 24 hr Category Date Time Status Sodium Chloride 0.9% [Saline Flush] Med 10/20/20 21:41 Active 10 ml FLUSH ASDIRECTED PRN Sodium Chloride 0.9% [Saline Flush] Med 10/20/20 21:41 Active 2.5 ml FLUSH ASDIRECTED PRN Saline Lock Insert [OM.PC] Stat Oth 10/20/20 21:42 Ordered Medication Orders Sodium Chloride (Saline Flush) 10 ml FLUSH ASDIRECTED PRN PRN Reason: Keep Vein Open Last Admin: 10/20/20 22:05 Dose: 10 ml Documented by: NIYA Sodium Chloride (Saline Flush) 2.5 ml FLUSH ASDIRECTED PRN PRN Reason: Keep Vein Open Last Admin: 10/20/20 22:05 Dose: 2.5 ml Documented by: NIYA Labs: Laboratory Tests 10/20/20 10/20/20 10/20/20 Range/Units 22:00 22:00 22:00 WBC 6.03 (4.0-11.0) K/uL RBC 4.43 L (4.50-5.90) M/uL Hgb 13.7 (13.0-17.0) g/dL Hct 40.6 (38.0-50.0) % MCV 91.6 (80.0-98.0) fL MCH 30.9 (27.0-32.0) pg MCHC 33.7 (31.0-37.0) g/dL RDW Std Deviation 43.9 (28.0-62.0) fl RDW Coeff of Shruthi 13 (11.0-15.0) % Plt Count 271 (150-400) K/uL MPV 10.00 (7.40-12.00) fL Neut % (Auto) 49.6 (48.0-80.0) % Lymph % (Auto) 33.3 (16.0-40.0) % [place] % (Auto) 10.3 (0.0-15.0) % Eos % (Auto) 6.3 (0.0-7.0) % Baso % (Auto) 0.5 (0.0-1.5) % Neut # (Auto) 3.0 (1.4-5.7) K/uL Lymph # (Auto) 2.0 (0.6-2.4) K/uL [place] # (Auto) 0.6 (0.0-0.8) K/uL Eos # (Auto) 0.4 (0.0-0.7) K/uL Baso # (Auto) 0.0 (0.0-0.1) K/uL Nucleated RBC % 0.0 /100WBC Nucleated RBCs # 0 K/uL ESR 44 H (0-19) mm/hr Sodium 140 (136-148) mmol/L Potassium 4.2 (3.5-5.1) mmol/L Chloride 103 (98-107) mmol/L Carbon Dioxide 27.3 (21.0-32.0) mmol/L BUN 23 H (7.0-18.0) mg/dL Creatinine 1.5 H (0.8-1.3) mg/dL Est Cr Clr Drug Dosing 54.75 mL/min Estimated GFR (MDRD) 47.9 ml/min Glucose 134 H (74-106) mg/dL Calcium 8.7 (8.5-10.1) mg/dL Total Bilirubin 0.3 (0.2-1.0) mg/dL AST 17 (15-37) IU/L ALT 29 (14-63) IU/L Alkaline Phosphatase 65 (46-116) U/L C-Reactive Protein 1.60 H (0.00-0.90) mg/dL Total Protein 7.5 (6.4-8.2) g/dL Albumin 3.6 (3.4-5.0) g/dL Globulin 3.9 (2.6-4.0) g/dL Albumin/Globulin Ratio 0.9 (0.9-1.6) Meds: Medications Generic Name Dose Route Start Last Admin Trade Name Freq PRN Reason Stop Dose Admin Sodium Chloride 10 ml 10/20/20 21:41 10/20/20 22:05 Saline Flush FLUSH 10 ml ASDIRECTED PRN Administration Keep Vein Open Sodium Chloride 2.5 ml 10/20/20 21:41 10/20/20 22:05 Saline Flush FLUSH 2.5 ml ASDIRECTED PRN Administration Keep Vein Open - Re-Assessments/Exams Free Text/Narrative Re-Assessment/Exam: 10/20/20 21:43 Knee does not appear infected. Will get basic labs including sed rate and CRP. Will get x-ray as well. 10/20/20 23:19 Labs unremarkable, x-ray unremarkable. Will discharge with follow-up orthopedic surgery. Departure - Departure Time of Disposition: 23:19 Disposition: Home, Self-Care 01 Condition: Good Clinical Impression: Blister of knee Qualifiers: Encounter type: initial encounter Laterality: right Qualified Code(s): S80.221A - Blister (nonthermal), right knee, initial encounter - Discharge Information Instructions: Partial Knee Replacement, Care After Referrals: Jimmie Gonzalez MD [Primary Care Provider] - Forms: ED Department Discharge Additional Instructions: The following information is given to patients seen in the emergency department who are being discharged to home. This information is to outline your options for follow-up care. We provide all patients seen in our emergency department with a follow-up referral. The need for follow-up, as well as the timing and circumstances, are variable depending upon the specifics of your emergency department visit. If you don't have a primary care physician on staff, we will provide you with a referral. We always advise you to contact your personal physician following an emergency department visit to inform them of the circumstance of the visit and for follow-up with them and/or the need for any referrals to a consulting specialist. The emergency department will also refer you to a specialist when appropriate. This referral assures that you have the opportunity for follow-up care with a specialist. All of these measure are taken in an effort to provide you with optimal care, which includes your follow-up. Under all circumstances we always encourage you to contact your private physician who remains a resource for coordinating your care. When calling for follow-up care, please make the office aware that this follow-up is from your recent emergency room visit. If for any reason you are refused follow-up, please contact the [facility] Emergency Department at and asked to speak to the emergency department charge nurse. Please follow up with your primary care physician. If you do not have a primary care physician, see below: [facility] [address] [place] [id number] [facility] [address] [place] [address] Your labs are grossly unremarkable. You should follow-up with your orthopedic surgeon. If you develop fever, redness, worsening pain at the knee then you should come back to the emergency department for reassessment. Sepsis Event Note (ED) - Evaluation Sepsis Screening Result: No Definite Risk - Focused Exam Vital Signs: Vital Signs Temp Pulse Resp BP Pulse Ox 10/20/20 21:38 97.0 F 80 16 129/77 98 - My Orders Last 24 Hours: My Active Orders 10/20/20 21:41 Sodium Chloride 0.9% [Saline Flush] 10 ml FLUSH ASDIRECTED PRN Sodium Chloride 0.9% [Saline Flush] 2.5 ml FLUSH ASDIRECTED PRN 10/20/20 21:42 Saline Lock Insert [OM.PC] Stat - Assessment/Plan Last 24 Hours: My Active Orders 10/20/20 21:41 Sodium Chloride 0.9% [Saline Flush] 10 ml FLUSH ASDIRECTED PRN Sodium Chloride 0.9% [Saline Flush] 2.5 ml FLUSH ASDIRECTED PRN 10/20/20 21:42 Saline Lock Insert [OM.PC] Stat
[2020-10-20 22:35] LABS: CARBON DIOXIDE,CO2 27.3 mmol/L (21.0-32.0); POTASSIUM,K 4.2 mmol/L (3.5-5.1)
--- NOTE | 2020-10-20 23:17 | CR ---
Indication: Right knee replacement, blistering around surgical site Technique: Two views of the right knee Comparison: None Findings/Impression: Medial compartment knee hemiarthroplasty appears intact. No evidence of hardware loosening. No fracture or osseous destruction. Small to moderate-sized suprapatellar joint effusion. Overlying soft tissue edema and skin stables. Dictated by Jeramy Aguilar MD @ Oct 20 2020 11:11PM Signed by Dr. Jeramy Aguilar @ Oct 20 2020 11:16PM
[2020-10-20 23:32] VITALS: BP 119/71; PULSE 66
== END 2020-10-20 23:30 | disposition home or self-care (01) ==
LOC: MW.ED 21:25
DX: S80.221A Blister (nonthermal), right knee, initial encounter (principal); M19.90 Unspecified osteoarthritis, unspecified site; E66.9 Obesity, unspecified; Z68.30 Body mass index [BMI] 30.0-30.9, adult; X58.XXXA Exposure to other specified factors, initial encounter
CPT/HCPCS: 36415; 73560-26-RT; 73560-RT; 80053; 85025; 85652; 86140; 99283-25

== ENCOUNTER 2022-02-02 20:54 | Emergency (ER) | payer BC ==
[2022-02-02 22:16] LABS: CARBON DIOXIDE,CO2 26.4 mmol/L (21.0-32.0); POTASSIUM,K 4.2 mmol/L (3.5-5.1)
[2022-02-02 23:10] VITALS: BP 112/62; PULSE 52
== END 2022-02-02 23:11 | disposition home or self-care (01) ==
LOC: MW.ED 20:54
DX: M23.91 Unspecified internal derangement of right knee (principal); E66.9 Obesity, unspecified; Z68.30 Body mass index [BMI] 30.0-30.9, adult
CPT/HCPCS: 36415; 73560-26-RT; 73560-RT; 80048; 85025; 85652; 99283; 99284-25

== ENCOUNTER 2025-01-26 06:54 | Day surgery (SDC) | payer BC ==
[~2025-01-26 06:54] MED LIST changes: -Famotidine 20 MG/2 ML SDV IVPUSH SCH; -Ropivacaine 49.25 ML, Ketorolac 30 MG, EPINEPHrine 0.5 MG, cloNIDine 80 MCG in Sodium C... INJECT SCH; -Scopolamine 1.5 MG Transdermal Patch TRDERM SCH; +Sodium Chloride 0.9% 10 ML Syringe FLUSH PRN; +Sodium Chloride 0.9% 2.5 ML Syringe FLUSH PRN; +Sodium Chloride 0.9% 20 ML SDV IV PRN; -Tranexamic Acid 1,000 MG in Sodium Chloride 0.9% 100 ML IV ONE; -ceFAZolin 2 GM in Premix Bag 1 BAG IV SCH
[2025-01-26] MEDS: Lactated Ringers 1,000 ML IV SCH (07:14)
[2025-01-26] MEDS ORDERED: Propofol 200 MG/20 ML SDV ONE (07:18)
[2025-01-26] MEDS ORDERED: dexmedeTOMIDine HCl 200 MCG/2 ML SDV ONE (07:19)
[2025-01-26] MEDS ORDERED: Sodium Chloride 0.9% 20 ML ONE (07:19)
[2025-01-26 09:12] VITALS: BP 120/73; PULSE 53
== END 2025-01-26 08:55 | disposition home or self-care (01) ==
LOC: MW.SDS 06:54
PROVIDERS: ATTEND Surgery
DX: K21.9 Gastro-esophageal reflux disease without esophagitis (principal); Z79.82 Long term (current) use of aspirin; Z86.16 Personal history of COVID-19; Z79.899 Other long term (current) drug therapy
CPT/HCPCS: 43239; J2704; J7120; 00731; J3490

== ENCOUNTER 2025-09-24 18:00 | Emergency (ER) | payer BC ==
[2025-09-24 18:55] LABS: APPEARANCE,URINE CLEAR; GLUCOSE,URINE NEGATIVE (NEGATIVE); OCCULT BLOOD,URINE NEGATIVE (NEGATIVE)
[2025-09-24 20:12] VITALS: BP 135/91; PULSE 63
== END 2025-09-24 20:12 | disposition home or self-care (01) ==
LOC: MW.ED 18:00
DX: R30.0 Dysuria (principal); Z79.899 Other long term (current) drug therapy
CPT/HCPCS: 81003; 82947; 99283; A9270